=== PATIENT | male | born 1935 | race Caucasian/White ===

== ENCOUNTER → 2017-03-25 | Outpatient (CLI) | payer OTHER, MEDICARE ==
--- NOTE | 2017-03-25 15:12 | Diagnostic Imaging Report ---
EXAMINATION: Two views of the skull. INDICATION: Screening orbits for MRI with history of left eye injury. FINDINGS: There is no metallic foreign body seen within the left orbit or intracranially. The right orbit also demonstrates no metallic foreign body. IMPRESSION: No metallic foreign body in the orbits or intracranially. Dictated by: Dictated on workstation # [id number]
--- NOTE | 2017-03-25 17:53 | Diagnostic Imaging Report ---
PROCEDURE: MRI left upper extremity without contrast. TECHNIQUE: Multiplanar, multisequence non contrast-enhanced MRI of the left upper extremity was accomplished. INDICATION: Injury. Left shoulder pain. FINDINGS: There is no os acromiale or Hill-Sachs deformity. 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 There is thickening and increased signal in the supraspinatus and the infraspinatus tendons compatible with tendinosis with superimposed low-grade partial tears seen in the distal tendon. There is suggestion of mild cortical hypertrophy as well along the undersurface of the acromion. The subscapularis tendon appears to be intact. The long head of biceps tendon is within its groove. The labrum demonstrates thinning in its posterior superior aspect which could be related to degeneration or possible tear. This would be better evaluated with MR arthrogram if needed. There is mild muscle atrophy in the subscapularis and no significant atrophy in the rest of the muscles in the shoulder girdle. There is mild increased signal in the deep fibers of the subscapularis and the infraspinatus muscles, however, which may relate to mild sprain. No significant marrow signal abnormality seen. IMPRESSION: 1. Rotator cuff tendinosis with superimposed partial tears in the supraspinatus and infraspinatus tendons. 2. Edema in the deep fibers of the subscapularis and infraspinatus muscles, may relate to mild traumatic sprain. 3. Thinning of the posterior superior aspect of the labrum could relate to degeneration or possible tear. Dictated by: Dictated on workstation # [id number]
== END ==
LOC: RAD 14:11
PROVIDERS: ATTEND Internal Medicine
DX: M75.112 Incomplete rotator cuff tear or rupture of left shoulder, not specified as traumatic (principal); M75.92 Shoulder lesion, unspecified, left shoulder
CPT/HCPCS: 70250; 73221

== ENCOUNTER 2019-02-10 16:28 | Inpatient (IN) | payer MEDICARE, OTHER ==
[~2019-02-10] VITALS: Ht 177.8 cm; Wt 83.1 kg
[2019-02-10] MEDS ORDERED: RT-ALBUTEROL/IPRATROPIUM 3 ML (DUONEB) VIAL INH ONE ×2 (16:45→21:00)
--- NOTE | 2019-02-10 16:50 | ED Dyspnea ---
General Stated Complaint: COUGH, SOB Source of Information: Patient Exam Limitations: No Limitations History of Present Illness Date Seen by Provider: Feb 10, 2019 Time Seen by Provider: 16:35 Initial Comments Patient comes in from urgent care of her chief complaint is shortness of breath. States last night having trouble sleeping in a lying position and having to sleep in the recliner. Reports progressive shortness of breath at rest. Denies chest pain, nausea, vomiting, chills, or fever. Reports recent history of a "sinus issue". Patient has no known cardiac history. Timing/Duration: 24 Hours Severity: Moderate Associated Symptoms: Denies Symptoms Allergies and Home Medications Allergies Coded Allergies: No Known Drug Allergies (Unverified , 02/10/19) Home Medications Insulin Determir 1,000 Units/10 Ml Soln, 8 UNITS SQ HS, (Reported) Losartan/Hydrochlorothiazide 1 Each Tablet, 1 EACH PO DAILY, (Reported) Patient Home Medication List Home Medication List Reviewed: Yes Review of Systems Review of Systems Constitutional: No chills, No fever, No malaise EENTM: no symptoms reported Respiratory: dyspnea on exertion, orthopnea, short of breath Cardiovascular: no symptoms reported Gastrointestinal: no symptoms reported Musculoskeletal: no symptoms reported Skin: no symptoms reported Psychiatric/Neurological: No Symptoms Reported Endocrine: No Symptoms Reported Hematologic/Lymphatic: No Symptoms Reported Physical Exam Vital Signs Vital Signs - First Documented 02/10/19 02/10/19 16:28 16:50 Temp 37.3 Pulse 123 Resp 18 B/P (MAP) 146/83 (104) Pulse Ox 94 O2 Delivery Room Air O2 Flow Rate 3.50 Capillary Refill : Height, Weight, BMI Height: '" Weight: lbs. oz. kg; BMI Method: General Appearance: No Apparent Distress, WD/WN HEENT: PERRL/EOMI Neck: Full Range of Motion, Non Tender Respiratory: Accessory Muscle Use, Crackles, Decreased Breath Sounds Cardiovascular: No JVD, No Murmur, Tachycardia Peripheral Pulses: 2+ Radial Pulses (R), 2+ Radial Pulses (L) Gastrointestinal: Normal Bowel Sounds Extremity: Normal Capillary Refill Neurologic/Psychiatric: Alert, Oriented x3, Normal Mood/Affect Skin: Normal Color, Warm/Dry (is now unless we diagnosed) Focused Exam Lactate Level 02/10/19 16:35: Lactic Acid Level 1.50 Lactic Acid Level Laboratory Tests Test 02/10/19 16:35 Lactic Acid Level 1.50 MMOL/L (0.50-2.00) Progress/Results/Core Measures Results/Orders Lab Results Laboratory Tests Test 02/10/19 16:35 Range/Units White Blood Count 13.8 H 4.3-11.0 10^3/uL Red Blood Count 4.68 4.35-5.85 10^6/uL Hemoglobin 13.4 13.3-17.7 G/DL Hematocrit 40 40-54 % Mean Corpuscular Volume 86 80-99 FL Mean Corpuscular Hemoglobin 29 25-34 PG Mean Corpuscular Hemoglobin Concent 34 32-36 G/DL Red Cell Distribution Width 14.9 H 10.0-14.5 % Platelet Count 149 130-400 10^3/uL Mean Platelet Volume 10.2 7.4-10.4 FL Neutrophils (%) (Auto) 88 H 42-75 % Lymphocytes (%) (Auto) 4 L 12-44 % Monocytes (%) (Auto) 7 0-12 % Eosinophils (%) (Auto) 1 0-10 % Basophils (%) (Auto) 0 0-10 % Neutrophils # (Auto) 12.1 H 1.8-7.8 X 10^3 Lymphocytes # (Auto) 0.5 L 1.0-4.0 X 10^3 Monocytes # (Auto) 1.0 0.0-1.0 X 10^3 Eosinophils # (Auto) 0.2 0.0-0.3 10^3/uL Basophils # (Auto) 0.0 0.0-0.1 10^3/uL Neutrophils % (Manual) 82 % Lymphocytes % (Manual) 2 % Monocytes % (Manual) 6 % Eosinophils % (Manual) 1 % Basophils % (Manual) 0 % Band Neutrophils 9 % Anisocytosis SLIGHT Sodium Level 139 135-145 MMOL/L Potassium Level 4.9 3.6-5.0 MMOL/L Chloride Level 105 98-107 MMOL/L Carbon Dioxide Level 28 21-32 MMOL/L Anion Gap 6 5-14 MMOL/L Blood Urea Nitrogen 30 H 7-18 MG/DL Creatinine 1.61 H 0.60-1.30 MG/DL Estimat Glomerular Filtration Rate 41 BUN/Creatinine Ratio 19 Glucose Level 274 H 70-105 MG/DL Lactic Acid Level 1.50 0.50-2.00 MMOL/L Calcium Level 9.4 8.5-10.1 MG/DL Corrected Calcium 9.2 8.5-10.1 MG/DL Total Bilirubin 0.7 0.1-1.0 MG/DL Aspartate Amino Transf (AST/SGOT) 26 5-34 U/L Alanine Aminotransferase (ALT/SGPT) 27 0-55 U/L Alkaline Phosphatase 77 40-136 U/L Troponin I < 0.028 <0.028 NG/ML B-Type Natriuretic Peptide 74.0 <100.0 PG/ML Total Protein 7.3 6.4-8.2 GM/DL Albumin 4.2 3.2-4.5 GM/DL My Orders Orders - KAITLYNN DANIELSON APRN Blood Culture (02/10/19 16:37) Lactic Acid Analyzer (02/10/19 16:37) Cbc With Automated Diff (02/10/19 16:37) Comprehensive Metabolic Panel (02/10/19 16:37) Chest 1 View, Ap/Pa Only (02/10/19 16:37) Ekg Tracing (02/10/19 16:37) Troponin I (02/10/19 16:37) BNP (02/10/19 16:37) Albuterol/Ipra Inhalation Soln (Duoneb I (02/10/19 16:45) Svn Small Volume Nebulizer (02/10/19 16:37) Manual Differential (02/10/19 16:35) Ct Chest Wo (02/10/19 17:45) Medications Given in ED Current Medications Medications Dose Ordered Sig/Oneil Route Start Time Stop Time Status Last Admin Dose Admin Albuterol/ Ipratropium 3 ml ONCE ONCE INH 02/10/19 16:45 02/10/19 16:46 DC 02/10/19 16:50 3 ML Vital Signs/I&O 02/10/19 02/10/19 16:28 16:50 Temp 37.3 Pulse 123 Resp 18 B/P (MAP) 146/83 (104) Pulse Ox 94 94 O2 Delivery Room Air Nasal Cannula O2 Flow Rate 3.50 Departure Impression Primary Impression: Bibasilar pneumonia Disposition: ADMITTED INPATIENT Condition: Stable Departure-Patient Inst. Referrals: JENNIFER NIX DO (PCP/Family) Primary Care Physician KAITLYNN DANIELSON APRN Feb 10, 2019 16:50
[2019-02-10 16:52] LABS: BASOPHILS % (AUTO) 0 % (0-10); EOSINOPHILS # (AUTO) 0.2 10^3/uL (0.0-0.3); EOSINOPHILS % (AUTO) 1 % (0-10); HEMATOCRIT 40 % (40-54); HEMOGLOBIN 13.4 G/DL (13.3-17.7); LYMPHOCYTES # (AUTO) 0.5 X 10^3 (1.0-4.0); LYMPHOCYTES % (AUTO) 4 % (12-44); MEAN CORPUSCULAR HEMOGLOBIN 29 PG (25-34); MEAN CORPUSCULAR HGB CONC 34 G/DL (32-36); MEAN CORPUSCULAR VOLUME 86 FL (80-99); MEAN PLATELET VOLUME 10.2 FL (7.4-10.4); MONOCYTES % (AUTO) 7 % (0-12); NEUTROPHILS # (AUTO) 12.1 X 10^3 (1.8-7.8); NEUTROPHILS % (AUTO) 88 % (42-75); PLATELET COUNT 149 10^3/uL (130-400); RED CELL DISTRIBUTION WIDTH 14.9 % (10.0-14.5); WHITE BLOOD COUNT 13.8 10^3/uL (4.3-11.0)
[2019-02-10 17:11] LABS: ALANINE AMINOTRANSFERASE 27 U/L (0-55); ALBUMIN 4.2 GM/DL (3.2-4.5); ALKALINE PHOSPHATASE 77 U/L (40-136); BILIRUBIN,TOTAL 0.7 MG/DL (0.1-1.0); BUN/CREATININE RATIO 19; CALCIUM 9.4 MG/DL (8.5-10.1); CARBON DIOXIDE 28 MMOL/L (21-32); CHLORIDE 105 MMOL/L (98-107); CREATININE SERUM 1.61 MG/DL (0.60-1.30); GFR ESTIMATED 41; GLUCOSE 274 MG/DL (70-105); POTASSIUM 4.9 MMOL/L (3.6-5.0); SODIUM 139 MMOL/L (135-145); TOTAL PROTEIN 7.3 GM/DL (6.4-8.2)
[2019-02-10 17:28] LABS: BAND NEUTROPHILS 9 %; BASOPHILS % (MANUAL) 0 %; EOSINOPHILS % (MANUAL) 1 %; LYMPHOCYTES % (MANUAL) 2 %; MONOCYTES % (MANUAL) 6 %; NEUTROPHILS % (MANUAL) 82 %
[2019-02-10 17:29] LABS: ANISOCYTOSIS SLIGHT
--- NOTE | 2019-02-10 17:38 | Diagnostic Imaging Report ---
INDICATION: Shortness of breath. COMPARISON: None. FINDINGS: Single view of the chest demonstrates clear lungs bilaterally. The heart is normal. There is no pneumothorax. The osseous structures normal. IMPRESSION: Negative chest. Dictated by: Dictated on workstation # [id number]
[2019-02-10] MEDS ORDERED: PRED5DRO24 OP (17:40)
[2019-02-10] MEDS ORDERED: LOSA1TAB26 PO (17:40)
[2019-02-10] MEDS ORDERED: ASPI-586 PO (17:40)
[2019-02-10] MEDS ORDERED: CHOL20002 PO (17:40)
[2019-02-10] MEDS ORDERED: SITA100T12 PO (17:40)
[2019-02-10] MEDS ORDERED: VIT1CAPS8 PO (17:40)
[2019-02-10] MEDS ORDERED: GLIM4TAB PO (17:40)
[2019-02-10] MEDS ORDERED: METF-397 PO (17:40)
[2019-02-10] MEDS ORDERED: INSU100V5 SQ (17:40)
[2019-02-10] MEDS ORDERED: ISOS1POW MC (17:40)
[2019-02-10] MEDS ORDERED: FISH12002 PO (17:40)
[2019-02-10] MEDS ORDERED: PRAV10TA PO (17:40)
[2019-02-10] MEDS ORDERED: CYAN100088 PO (17:40)
--- NOTE | 2019-02-10 18:27 | Diagnostic Imaging Report ---
PROCEDURE: CT chest without contrast. TECHNIQUE: Multiple contiguous axial images were obtained through the chest without the use of intravenous contrast. Auto Exposure Controls were utilized during the CT exam to meet ALARA standards for radiation dose reduction. INDICATION: Shortness of breath and vomiting. Chest pain. COMPARISON: Comparison made to the chest radiograph from earlier in the same day. FINDINGS: Lungs demonstrate some linear opacities within both of the lung bases that are most likely reflective of dependent atelectasis. Small degree of right basilar infiltrate and developing pneumonia is however difficult to exclude as there is some slightly more consolidative opacification within the medial aspect of the right lung base. There is no evidence of an effusion. There is no pneumothorax. No pulmonary nodule or mass evident. There are mild atherosclerotic calcifications within the aorta. There are coronary calcifications. The heart size appears normal. There is no pericardial collection. There are no findings of pathologic mediastinal, hilar or axillary lymphadenopathy. The upper abdomen demonstrates no acute process. There is no acute or suspicious osseous abnormality. There are multilevel degenerative endplate changes. Remote left rib fractures are noted. IMPRESSION: 1. Predominantly linear opacities at the lung bases are most likely reflective of atelectasis though there is some slightly more focal consolidation within the medial aspect of the right lung base which could reflect a small region of developing pneumonia and infiltrate. 2. There is no effusion or adenopathy. 3. Atherosclerosis and coronary artery disease. 4. Upper abdomen unremarkable. 5. No acute or suspicious osseous abnormality. There are remote left rib fractures and there are background features of degenerative disc disease. Dictated by: Dictated on workstation # [id number]
[2019-02-10] MEDS ORDERED: cefTRIAXone FOR IV USE 1,000 MG in WATER (STERILE) FOR INJECTION 10 ML IV ONE (18:30)
--- NOTE | 2019-02-10 19:28 | NUR ---
MAYKEL JOHNS admitted to room 412-1, with an admitting diagnosis of PNEUMONIA AND HYPOXIA, on 02/10/19 from ED via CART, accompanied by STAFF.MAYKEL JOHNS introduced to surroundings, call light, bed controls, phone, TV, temperature control, lights, meal times, smoking policy, visitor policy, side rail policy, bathrooms and showers.
[2019-02-10] MEDS ORDERED: CATHETER FLUSH 10 ML SYR IV PRN (19:45)
[2019-02-10] MEDS ORDERED: ONDANSETRON 4 MG/2 ML (SDV) Z0FRAN IV PRN (19:45)
[2019-02-10] MEDS ORDERED: ACETAMINOPHEN 325 MG TABLET PO PRN (19:45)
[2019-02-10] MEDS ORDERED: AZITHROMYCIN 500 MG/NS 250 ML IVPB IV NR ×2 (20:00)
[2019-02-10 20:25] VITALS: BP 120/71
[2019-02-10] MEDS ORDERED: RT-ALBUTEROL/IPRATROPIUM 3 ML (DUONEB) VIAL INH PRN (20:30)
[2019-02-10 20:59] VITALS: BP 147/77
[2019-02-10] MEDS: LACTATED RINGERS 1,000 ML IV SCH (20:59)
[2019-02-10] MEDS ORDERED: RT-ALBUTEROL/IPRATROPIUM 3 ML (DUONEB) VIAL ONE (21:19)
[2019-02-10 21:36] VITALS: BP 148/83
[2019-02-11] VITALS (8 sets, daily range): BP systolic 90–136; BP diastolic 54–76
[2019-02-11 05:43] LABS: BASOPHILS % (AUTO) 0 % (0-10); EOSINOPHILS # (AUTO) 0.3 10^3/uL (0.0-0.3); EOSINOPHILS % (AUTO) 2 % (0-10); HEMATOCRIT 37 % (40-54); HEMOGLOBIN 12.1 G/DL (13.3-17.7); LYMPHOCYTES # (AUTO) 1.1 X 10^3 (1.0-4.0); LYMPHOCYTES % (AUTO) 8 % (12-44); MEAN CORPUSCULAR HEMOGLOBIN 29 PG (25-34); MEAN CORPUSCULAR HGB CONC 33 G/DL (32-36); MEAN CORPUSCULAR VOLUME 86 FL (80-99); MEAN PLATELET VOLUME 10.5 FL (7.4-10.4); MONOCYTES # (AUTO) 1.9 X 10^3 (0.0-1.0); MONOCYTES % (AUTO) 12 % (0-12); NEUTROPHILS # (AUTO) 11.9 X 10^3 (1.8-7.8); NEUTROPHILS % (AUTO) 78 % (42-75); PLATELET COUNT 142 10^3/uL (130-400); WHITE BLOOD COUNT 15.3 10^3/uL (4.3-11.0)
[2019-02-11] MEDS: AZITHROMYCIN 250 MG TAB (ZITHROMAX) PO SCH (08:43)
[2019-02-11] MEDS ORDERED: PRED5DRO17 OP (09:12)
[2019-02-11] MEDS ORDERED: ISOS30TA3 PO (09:12)
[2019-02-11] MEDS ORDERED: LOSA100T57 PO (09:12)
[2019-02-11] MEDS ORDERED: CNC1KV IM (09:24)
[2019-02-11] MEDS ORDERED: ACET325T38 PO (09:25)
[2019-02-11] MEDS ORDERED: NAPR220T66 PO (09:25)
--- NOTE | 2019-02-11 09:26 | NUR ---
SPOKE WITH PT ( WELL HIS ) HE HAD A HOME LIST, ALSO WENT THRU THE EXT MED HISTORY TO COMPLETE THE MED REC. GLIMEPIRIDE 4MG: PT IS ONLY TAKING 1/2 A TAB TO EQUAL A 2MG DOSE. LEVEMIR: PT IS NOW USING 10 UNITS HS, INDICATES THAT THE DOSE HAS BEEN CHANGING RECENTLY. OTC MEDS: VITAMIN D3: 1 HS ASPIRIN 81M HS OCUVITE: 1 HS ACETAMINOPHEN 325M BID PRN NAPROXEN 220M BID PRN
--- NOTE | 2019-02-11 10:37 | History & Physical-Hospitalist ---
History of Present Illness HPI/Chief Complaint Patient's an 83-year-old male with a past medical history of hypertension and insulin-dependent diabetes type II who presented to the emergency room with a chief complaint of cough and shortness of breath. He refers to his to provide his history. She states that on 911 he woke up with a sore throat he continued to worsen that evening and had to sleep in his recliner due to orthopnea. Yesterday she noticed that his lungs sounded rattly so she brought him to an urgent care. She states that the urgent care his oxygen saturations were low and they brought him via ambulance to the emergency department. He remained hypoxic here and was found to have a pneumonia on chest x-ray. He was tachycardic with a leukocytosis and admitted for sepsis due to CAP. This morning he states he's feeling better and asked to go home. He remains on 4 L via nasal cannula and at baseline has no oxygen requirement. Source: patient, family Date Seen 02/11/19 Time Seen by a Provider: 10:36 Attending Physician Mindi Boyd MD PCP Jennifer So DO Referring Physician Date of Admission Feb 10, 2019 at 6:33 pm Home Medications & Allergies Home Medications Reviewed patient Home Medication Reconciliation performed by pharmacy medication reconciliations diploma pharmacy technician and/or nursing. Patients Allergies have been reviewed. Allergies Allergies Coded Allergies No Known Drug Allergies (Unverified02/10/19) Past Nrugkyr-Mehexh-Jhrtuo Hx Past Med/Social Hx: Reviewed Nursing Past Med/Soc Hx Patient Social History Marrital Status: Employed/Student: retired Alcohol Use: Denies Use Recreational Drug Use: No Smoking Status: Never a Smoker 2nd Hand Smoke Exposure: No Recent Foreign Travel: No Contact w/other who traveled: No Recent Hopitalizations: No Recent Infectious Disease Expo: No Seasonal Allergies Seasonal Allergies: No Past Medical History Surgeries: Eye Surgery Cardiac: Hypertension Endocrine: Diabetes, Insulin dep HEENT: Cataract History of Blood Disorders: No Family History Reviewed Nursing Family Hx "GIRL" CANCER G8 SISTER No Pertinent Family Hx Review of Systems Constitutional: No chills, No fever, No weakness Respiratory: see HPI, cough, dyspnea on exertion, orthopnea, short of breath Cardiovascular: No chest pain, No edema, No palpitations Gastrointestinal: No abdominal pain, No nausea; vomiting (post tussive) Genitourinary: no symptoms reported Musculoskeletal: no symptoms reported Skin: no symptoms reported Psychiatric/Neurological: Other (confusion) Physical Exam Physical Exam Vital Signs Vital Signs - First Documented 02/10/19 02/10/19 02/10/19 16:28 16:50 20:25 Temp 37.3 Pulse 123 Resp 18 B/P (MAP) 146/83 (104) Pulse Ox 94 O2 Delivery Room Air O2 Flow Rate 3.50 FiO2 32 Capillary Refill : Less Than 3 Seconds Height, Weight, BMI Height: '" Weight: 183lbs. 4.0oz. 83.205687op; 26.35 BMI Method: General Appearance: No Apparent Distress, WD/WN HEENT: Moist Mucous Membranes; No Scleral Icterus (L), No Scleral Icterus (R) Neck: Normal Inspection, Supple; No Thyromegaly Respiratory: No Accessory Muscle Use, No Respiratory Distress, Crackles (bibasilar) Cardiovascular: Regular Rate, Rhythm, No Murmur Gastrointestinal: Normal Bowel Sounds, Non Tender, Soft Extremity: Normal Capillary Refill, No Calf Tenderness, No Pedal Edema Neurologic/Psychiatric: Alert, Normal Mood/Affect, Other (oriented to person and place- seems slight confused to details of HPI) Results Results/Procedures Labs Laboratory Tests 02/10/19 16:35 02/11/19 05:05 Patient resulted labs reviewed. Imaging: Reviewed Imaging Report Assessment/Plan Admission Diagnosis Sepsis from CAP Admission Status: Inpatient Order (span 2 midnights) Reason for Inpatient Admission: hypoxia, sepsis from pneumonia Assessment and Plan Sepsis Acute hypoxic respiratory failure CAP Leukocytosis with tachycardia, no end organ involvement Continue Rocephin and Azithro Await blood cultures Titrate sats to keep greater than 90% IDDMII Continue Levemir Sliding Scale Insulin HTN Well controlled, trend Diagnosis/Problems Diagnosis/Problems (1) Sepsis Qualifiers: Sepsis type: sepsis due to unspecified organism Sepsis acute organ dysfunction status: without acute organ dysfunction Qualified Codes: A41.9 - Sepsis, unspecified organism (2) CAP (community acquired pneumonia) Qualifiers: Laterality: right Lung location: unspecified part of lung Qualified Codes: J18.9 - Pneumonia, unspecified organism (3) Insulin dependent diabetes mellitus Status: Chronic (4) Essential (primary) hypertension Status: Chronic Clinical Quality Measures DVT/VTE Risk/Contraindication: Risk Factor Score Per Nursin RFS Level Per Nursing on Admit: 2=Moderate Copy Copies To 1: JENNIFER SO KATELYN M MD Feb 11, 2019 10:36 am
[2019-02-11] MEDS ORDERED: ACETAMINOPHEN 325 MG TABLET PO PRN (11:15)
[2019-02-11] MEDS: LACTATED RINGERS 1,000 ML IV SCH (11:53)
--- NOTE | 2019-02-11 15:13 | Physical Therapy Evaluation ---
PT Evaluation-General Medical Diagnosis Admission Date Feb 10, 2019 at 18:33 Medical Diagnosis: pneumonia/hypoxia Onset Date: Feb 10, 2019 Therapy Diagnosis Therapy Diagnosis: debility/weakness Height/Weight Weight (Pounds): 183 Weight (Ounces): 4.0 Precautions Precautions/Isolations: Fall Prevention, Standard Precautions Weight Bear Status Right Lower Extremity: Right Weight Bearing/Tolerated Left Lower Extremity: Left Weight Bearing/Tolerated Referral Physician: Deb Reason for Referral: Evaluation/Treatment Medical History Pertinent Medical History: DM, HTN Current History EMS from urgent care secondary to hypoxic Reviewed History: Yes Social History Home: Single Level Current Living Status: Spouse Entry Into Home: Level Entry Prior/Core FIM Prior Level of Function Therapy Code Descriptions/Definitions Functional [place] Measure: 0=Not Assessed/NA 4=Minimal Assistance 1=Total Assistance 5=Supervision or Setup 2=Maximal Assistance 6=Modified [place] 3=Moderate Assistance 7=Complete [place] Therapy Quality Codes: 6 Independent with activity with or without an assistive device 5 Patient requires set up or clean up by helper. Patient completes activity by themselves 4 Supervision or touching assist (CGA). [place] provide cues , steadying assist 3 The helper provides less than half the effort to complete the activity 2 The helper provides more than half the effort to complete the activity 1 Dependent. The helper does all the effort to complete an activity 7 Patient refused to complete or attempt activity 9 The patient did not perform the activity before the current illness or injury 88 Not attempted due to Medical conditions or safety concerns Functional Abilities and Goals: Independent: Patient completed the activities by him/herself, with or without an assistive device, with no assistance from a helper. Needed Some Help: Patient needed partial assistance from another person to complete activities. Dependent: A helper completed the activities for the patient. Unknown: Not Applicable: Bed Mobility: 7 Transfers (B,C,W/C) (FIM): 7 Gait: 7 Indoor Mobility (Ambulation): Independent Stairs: Not [place] Prior Devices Use: None PT Evaluation-Current Subjective Patient agrees to PT. Pain Numeric Pain Scale: 0-No Pain Location: No Pain Reported Objective Patient Orientation: Normal For Age Problem Solving: Fair Attachments: Oxygen (4L NC ), IV ROM/Strength ROM Lower Extremities bilateral LE WFL Strength Lower Extremities 4/5 grossly bilateral LE Integumentary/Posture Integumentary refer to nursing notes Bowel Incontinence: No Bladder Incontinence: No Posture WFL Neuromuscular (Tone, Coordination, Reflexes) grossly intact Sensory Vision: Wears Glasses Hearing: Impaired Sensation Right Lower Extremit: Impaired Sensation Left Lower Extremity: Impaired Transfers Therapy Code Descriptions/Definitions Functional [place] Measure: 0=Not Assessed/NA 4=Minimal Assistance 1=Total Assistance 5=Supervision or Setup 2=Maximal Assistance 6=Modified [place] 3=Moderate Assistance 7=Complete [place] Transfers (B, C, W/C) (FIM): 7 Scootin Rollin Supine to/from Sit: 7 Sit to/from Stand: 7 Gait Mode of Locomotion: Walk Anticipated Mode of Locomotion: Walk Gait (FIM): 4 Distance (FIM): 3=150 ft Distance: 300' Gait Level of Assist: 4 Gait Persons Needed: 1 Gait Assistive Device: None Comments/Gait Description refused FWW use/reports he furniture walks at home/unsteady gait sequence to right with PT and self correct Balance Sitting Static: Normal Sitting Dynamic: Normal Standing Static: Fair Standing Dynamic: Fair Assessment/Needs 83 y.o. male, will benefit from skilled PT to address functional mobility to ensure safe return to home with spouse at maximum LOF. Rehab Potential: Fair PT Production Control Expediter Goals Prison Goals PT Prison Goals Time Frame: Feb 18, 2019 Transfers (B,C,W/C) (FIM): 7 Gait (FIM): 7 Gait distance (FIM): 3=150 ft Distance: 300' Gait Level of Assist: 7 Gait Assistive Device: None PT Plan Problem List Problem List: Activity Tolerance, Safety, Balance Treatment/Plan Treatment Plan: Continue Plan of Care Treatment Plan: Bed Mobility, Education, Functional Activity Mikhail, Functional Strength, Gait, Safety, Therapeutic Exercise Treatment Duration: Feb 18, 2019 Frequency: 6 times per week Estimated Hrs Per Day: .25 hour per day Patient and/or Family Agrees t: Yes Time/GCodes Time In: 1430 Time Out: 1455 Total Billed Treatment Time: 25 Total Billed Treatment 1 visit EVMod 25 min KARIE HOLT PT Feb 11, 2019 15:13
--- NOTE | 2019-02-11 15:57 | Occupational Therapy Eval ---
OT Evaluation-General/PLF Medical Diagnosis Admission Date Feb 10, 2019 at 18:33 Medical Diagnosis: pneumonia/hypoxia Onset Date: Feb 10, 2019 Therapy Diagnosis Therapy Diagnosis: decreased ADL/ fx mob Height/Weight Weight (Pounds): 183 Weight (Ounces): 4.0 Precautions Precautions/Isolations: Fall Prevention, Standard Precautions Weight Bear Status Weight Bearing Restriction: Weight Bearing/Tolerated Referral Physician: Deb Referral Reason: Activity Tolerance, Self Care, Evaluation/Treatment, Strengthening/ROM Medical History Pertinent Medical History: DM, HTN Additional Medical History PMhx: HTN, DMII Current History Pt admitted due to SOB, cough, hypoxia Reviewed History: Yes Social History Home: Single Level Current Living Status: Spouse Entry Into Home: Level Entry Steps Into Home: 0 Steps Inside Home: 0 Pt states living at home with spouse. Pt IND within ADL/ IADL tasks. ADL-Prior Level of Function Therapy Code Descriptions/Definitions Functional [place] Measure: 0=Not Assessed/NA 4=Minimal Assistance 1=Total Assistance 5=Supervision or Setup 2=Maximal Assistance 6=Modified [place] 3=Moderate Assistance 7=Complete [place] Therapy Quality Codes: 6 Independent with activity with or without an assistive device 5 Patient requires set up or clean up by helper. Patient completes activity by themselves 4 Supervision or touching assist (CGA). [place] provide cues , steadying assist 3 The helper provides less than half the effort to complete the activity 2 The helper provides more than half the effort to complete the activity 1 Dependent. The helper does all the effort to complete an activity 7 Patient refused to complete or attempt activity 9 The patient did not perform the activity before the current illness or injury 88 Not attempted due to Medical conditions or safety concerns Functional Abilities and Goals: Independent: Patient completed the activities by him/herself, with or without an assistive device, with no assistance from a helper. Needed Some Help: Patient needed partial assistance from another person to complete activities. Dependent: A helper completed the activities for the patient. Unknown: Not Applicable: Self Care: Independent Functional Cognition: Independent DME/Equipment: Bath Chair, Grab Bars DME/Equipment Comments Pt was IND with ADL/IADLs without AD Occupation: retired Drive Self: Yes OT Current Status Subjective Pt talking on phone in recliner chair. Pt no c/o pain or any SOB. Pt's 02 at 4L, cannula in place. Pt agreeable to OT evaluation. Pt's daughter and son in law present. Appearance alert, awake Mental Status/Objective Patient Orientation: Person, Place, Time, Situation, Normal For Age Attachments: IV, Oxygen (4L), Telemetry Current Glasses/Contacts: Yes Hearing Aids: No Dentures/Partials: Yes Hand Dominance: Right Upper Extremity ROM WFL Upper Extremity Coordination WFL Upper Extremity Sensation WFL, no c/o paresthesia Upper Extremity Strength WFL: BUE shoulder flexion 4+/5, elbow flexion 4-/5 ADL-Treatment Therapy Code Descriptions/Definitions Functional [place] Measure: 0=Not Assessed/NA 4=Minimal Assistance 1=Total Assistance 5=Supervision or Setup 2=Maximal Assistance 6=Modified [place] 3=Moderate Assistance 7=Complete [place] Therapy Quality Codes: 6 Independent with activity with or without an assistive device 5 Patient requires set up or clean up by helper. Patient completes activity by themselves 4 Supervision or touching assist (CGA). [place] provide cues , steadying assist 3 The helper provides less than half the effort to complete the activity 2 The helper provides more than half the effort to complete the activity 1 Dependent. The helper does all the effort to complete an activity 7 Patient refused to complete or attempt activity 9 The patient did not perform the activity before the current illness or injury 88 Not attempted due to Medical conditions or safety concerns Eating (FIM): 6 Grooming (FIM): 6 Lower Body Dressing (FIM): 6 (increased time with shoe donning) Toileting (FIM): 6 (use of grab bars during transfer, pt completes with good safety) Transfers (B, C, W/C) (FIM): 5 (SBA for safety and management of IV/ 02 tubing) Toilet/Commode Transfer (FIM): 5 (pt completes with good safety with SUP for safety) Tub Transfer (FIM): 5 (SUP for safety and managment of tubing) Other Treatments Pt states he was SOB and coughing a bit upon admit, no use of 02 at home. Pt completes transfers with no AE, good dynamic standing balance. Pt completes transfers and walking with good safety awareness, acknowledging tubing and pausing when managing tubing of IV/ long 02 tubing. Pt educated of OT process, pt states he is able to complete activities with IND. Pt demonstrates WFL ROM and UE strength, demonstrating abilities to complete UE dressing and grooming tasks. Pt places shoes on feet with increased time. Pt agrees no OT needed at this time, pt educated of breathing techniques and returns to chair, call light in reach and all needs met. Education OT Patient Education: Correct positioning, Modified ADL techniques, Purpose of tx/functional activities, Rehab process, Safety issues, Transfer techniques Teaching Recipient: Patient Teaching Methods: Demonstration, Discussion Response to Teaching: Verbalize Understanding, Return Demonstration Pt educated about safety with tubing, energy conservation and breathing within daily tasks. Pt states no wear of 02 at home. OT Short Term Goals Short Term Goals 1=Demonstrate adherence to instructed precautions during ADL tasks. 2=Patient will verbalize/demonstrate understanding of assistive devices/modifications for ADL. 3=Patient will improve strength/tolerance for activity to enable patient to perform ADL's. OT Reclamation Furnace Operator Goals Reclamation Furnace Operator Goals 1=Demonstrate adherence to instructed precautions during ADL tasks. 2=Patient will verbalize/demonstrate understanding of assistive devices/tim fications for ADL. 3=Patient will improve strength/tolerance for activity to enable patient to perform ADL's. OT Education/Plan Problem List/Assessment Assessment: No Skilled OT Needs ID'd Discharge Recommendations Plan/Recommendations: Discontinue OT Therapy Discharge Recommendati: Other, See Comments Comment Pt is IND within ADL tasks with increased time noted, no OT services rendered at this time. Treatment Plan/Plan of Care Treatment,Training & Education: Yes Patient would benefit from OT for education, treatment and training to promote independence in ADL's, mobility, safety and/or upper extremity function for ADL's. Frequency: 1 time per week (eval only) Estimated Hrs Per Day: Other (eval only) Agreement: Yes Rehab Potential: Fair Time/GCodes Start Time: 15:30 Stop Time: 15:48 Total Time Billed (hr/min): 18 Billed Treatment Time 1 EVL (18) ROXI BAINS OTR Feb 11, 2019 15:57
[2019-02-11] MEDS: inSUlin ASPART (NovoLOG) 1 UNIT/0.01 ML (CHARGE PER UNIT) SC SCH ×3 (17:07→22:18)
[2019-02-11] MEDS: cefTRIAXone 1,000 MG/SWFI 10 ML IV PUSH IV SCH ×2 (18:25)
[2019-02-11] MEDS ORDERED: risperiDONE 0.25 MG (RisperDAL) TAB PO NR (19:15)
[2019-02-11] MEDS: LACTOBACILLUS ACIDOPHILUS (PROBIOTIC) CAPSULE PO SCH (19:55)
[2019-02-11] MEDS: prednisoLONE 1% OPTH (PRED FORTE) 5 ML BTL OU SCH (19:55)
[2019-02-11] MEDS: SIMvastatin 10 MG (ZOCOR) TAB PO SCH (21:09)
[2019-02-12 04:10] VITALS: BP 100/61
[2019-02-12] MEDS: inSUlin ASPART (NovoLOG) 1 UNIT/0.01 ML (CHARGE PER UNIT) SC SCH ×4 (06:54→22:16)
[2019-02-12] MEDS: LACTOBACILLUS ACIDOPHILUS (PROBIOTIC) CAPSULE PO SCH ×3 (06:55→18:05)
[2019-02-12 07:42] LABS: BASOPHILS % (AUTO) 0 % (0-10); EOSINOPHILS % (AUTO) 4 % (0-10); HEMATOCRIT 39 % (40-54); HEMOGLOBIN 12.7 G/DL (13.3-17.7); LYMPHOCYTES % (AUTO) 12 % (12-44); MEAN CORPUSCULAR HEMOGLOBIN 28 PG (25-34); MEAN CORPUSCULAR HGB CONC 32 G/DL (32-36); MEAN CORPUSCULAR VOLUME 86 FL (80-99); MEAN PLATELET VOLUME 10.9 FL (7.4-10.4); MONOCYTES % (AUTO) 12 % (0-12); NEUTROPHILS # (AUTO) 6.3 X 10^3 (1.8-7.8); NEUTROPHILS % (AUTO) 72 % (42-75); PLATELET COUNT 167 10^3/uL (130-400); RED CELL DISTRIBUTION WIDTH 15.5 % (10.0-14.5); WHITE BLOOD COUNT 8.7 10^3/uL (4.3-11.0)
[2019-02-12 07:43] LABS: EOSINOPHILS # (AUTO) 0.3 10^3/uL (0.0-0.3); LYMPHOCYTES # (AUTO) 1.1 X 10^3 (1.0-4.0); MONOCYTES # (AUTO) 1.1 X 10^3 (0.0-1.0)
[2019-02-12 07:58] VITALS: BP 125/65
[2019-02-12 08:11] LABS: CALCIUM 9.7 MG/DL (8.5-10.1); CREATININE SERUM 1.31 MG/DL (0.60-1.30); POTASSIUM 4.6 MMOL/L (3.6-5.0)
--- NOTE | 2019-02-12 08:55 | Progress Note - Hospitalist ---
Subjective HPI/CC On Admission Date Seen by Provider: Feb 12, 2019 Time Seen by Provider: 08:53 Patient's an 83-year-old male with a past medical history of hypertension and insulin-dependent diabetes type II who presented to the emergency room with a chief complaint of cough and shortness of breath. He refers to his to provide his history. She states that on 911 he woke up with a sore throat he continued to worsen that evening and had to sleep in his recliner due to orthopnea. Yesterday she noticed that his lungs sounded rattly so she brought him to an urgent care. She states that the urgent care his oxyg en saturations were low and they brought him via ambulance to the emergency department. He remained hypoxic here and was found to have a pneumonia on chest x-ray. He was tachycardic with a leukocytosis and admitted for sepsis due to CAP. This morning he states he's feeling better and asked to go home. He remains on 4 L via nasal cannula and at baseline has no oxygen requirement. Subjective/Events-last exam Pt sleeping soundly at this time. Discussed with aide and has been very confused still. Returned to bed when available and patietn awake. He believes he was brought to the basement last night and is unsure where he is now. states this is not common for him. Focused Exam Lactate Level 02/10/19 16:35: Lactic Acid Level 1.50 Objective Exam Vital Signs Vital Signs Date Time Temp Pulse Resp B/P (MAP) Pulse Ox O2 Delivery O2 Flow Rate FiO2 02/12/19 13:00 112 02/12/19 11:46 36.7 16 106/66 96 Nasal Cannula 4.00 02/10/19 20:25 32 Capillary Refill : Less Than 3 Seconds General Appearance: No Apparent Distress, WD/WN, Chronically ill Results/Procedures Lab Laboratory Tests 02/12/19 05:48 Patient resulted labs reviewed. Imaging: Reviewed Imaging Report Assessment/Plan Assessment and Plan Assess & Plan/Chief Complaint Sepsis Acute hypoxic respiratory failure CAP Leukocytosis resolved Continue Rocephin and Azithro Await blood cultures (1/ appears to have GPC that is likely a contaminant) Titrate sats to keep greater than 90%- currently 4lpm IDDMII Continue Levemir Sliding Scale Insulin HTN Well controlled, trend Delirium Risperdal added DC telemetry and IV at night to help with confusion Sitter outside of room Diagnosis/Problems Diagnosis/Problems (1) Sepsis Qualifiers: Sepsis type: sepsis due to unspecified organism Sepsis acute organ dysfunction status: without acute organ dysfunction Qualified Codes: A41.9 - Sepsis, unspecified organism (2) CAP (community acquired pneumonia) Qualifiers: Laterality: right Lung location: unspecified part of lung Qualified Codes: J18.9 - Pneumonia, unspecified organism (3) Insulin dependent diabetes mellitus Status: Chronic (4) Essential (primary) hypertension Status: Chronic Clinical Quality Measures DVT/VTE Risk/Contraindication: Risk Factor Score Per Nursin RFS Level Per Nursing on Admit: 2=Moderate FARSHAD STEWART MD Feb 12, 2019 8:55 am
[2019-02-12] MEDS: prednisoLONE 1% OPTH (PRED FORTE) 5 ML BTL OU SCH (08:59)
[2019-02-12] MEDS: LOSARTAN 100 MG (COZAAR) TABLET PO SCH (09:00)
[2019-02-12] MEDS: ISOSORBIDE MONONITRATE 30 MG (IMDUR) TAB PO SCH (09:00)
[2019-02-12] MEDS: AZITHROMYCIN 250 MG TAB (ZITHROMAX) PO SCH (09:00)
[2019-02-12] MEDS: RT-ALBUTEROL/IPRATROPIUM 3 ML (DUONEB) VIAL INH SCH ×2 (10:20→19:32)
--- NOTE | 2019-02-12 10:58 | Physical Therapy Daily Note ---
PT Daily Note-Current Subjective States that he is out of his mind but he will walk. Transfers Therapy Code Descriptions/Definitions Functional [place] Measure: 0=Not Assessed/NA 4=Minimal Assistance 1=Total Assistance 5=Supervision or Setup 2=Maximal Assistance 6=Modified [place] 3=Moderate Assistance 7=Complete [place] Therapy Quality Codes: 6 Independent with activity with or without an assistive device 5 Patient requires set up or clean up by helper. Patient completes activity by themselves 4 Supervision or touching assist (CGA). [place] provide cues , steadying as sist 3 The helper provides less than half the effort to complete the activity 2 The helper provides more than half the effort to complete the activity 1 Dependent. The helper does all the effort to complete an activity 7 Patient refused to complete or attempt activity 9 The patient did not perform the activity before the current illness or injury 88 Not attempted due to Medical conditions or safety concerns Weight Bearing Right Lower Extremity: Right Weight Bearing/Tolerated Left Lower Extremity: Left Weight Bearing/Tolerated Gait Training Gait (FIM): 5 Distance (FIM): 3=150 ft Distance: 300' Gait Level of Assist: 5 Gait Persons Needed: 1 Gait Assistive Device: FWW Assessment Current Status: Excellent Progress Patient had confusion but he did well with ambulation. PT Inter Fold Roll Cutter Goals Inter Fold Roll Cutter Goals PT Usp Goals Time Frame: Feb 18, 2019 Transfers (B,C,W/C) (FIM): 7 Gait (FIM): 7 Gait distance (FIM): 3=150 ft Distance: 300' Gait Level of Assist: 7 Gait Assistive Device: None PT Plan Treatment/Plan Treatment Plan: Continue Plan of Care Treatment Plan: Bed Mobility, Education, Functional Activity Mikhail, Functional Strength, Gait, Safety, Therapeutic Exercise Treatment Duration: Feb 18, 2019 Frequency: 6 times per week Estimated Hrs Per Day: .25 hour per day Patient and/or Family Agrees t: Yes Time/GCodes Time In: 1035 Time Out: 1050 Total Billed Treatment Time: 15 Total Billed Treatment 1, GT x 15' JOEL LIVINGSTON PT Feb 12, 2019 10:58
[2019-02-12 11:46] VITALS: BP 106/66
[2019-02-12] MEDS ORDERED: HALOPERIDOL 5 MG/ML (HALDOL) AMP IM PRN (14:15)
[2019-02-12 16:00] VITALS: BP 96/54
[2019-02-12] MEDS: cefTRIAXone 1,000 MG/SWFI 10 ML IV PUSH IV SCH ×2 (18:06)
[2019-02-12] MEDS: SIMvastatin 10 MG (ZOCOR) TAB PO SCH (20:25)
[2019-02-12] MEDS: ASPIRIN E.C. 81 MG (ECOTRIN) TAB PO SCH (20:25)
[2019-02-12] MEDS: MELATONIN 3 MG TABLET PO SCH (20:25)
[2019-02-12] MEDS: risperiDONE 0.25 MG (RisperDAL) TAB PO SCH (20:25)
[2019-02-12 23:42] VITALS: BP 118/69
[2019-02-13] MEDS: inSUlin ASPART (NovoLOG) 1 UNIT/0.01 ML (CHARGE PER UNIT) SC SCH ×4 (06:02→19:57)
[2019-02-13] MEDS: LACTOBACILLUS ACIDOPHILUS (PROBIOTIC) CAPSULE PO SCH ×3 (06:20→16:27)
[2019-02-13 08:00] VITALS: BP 148/68
[2019-02-13] MEDS: RT-ALBUTEROL/IPRATROPIUM 3 ML (DUONEB) VIAL INH SCH (08:14)
[2019-02-13] MEDS: AZITHROMYCIN 250 MG TAB (ZITHROMAX) PO SCH (08:18)
[2019-02-13] MEDS: LOSARTAN 100 MG (COZAAR) TABLET PO SCH (08:18)
[2019-02-13] MEDS: ISOSORBIDE MONONITRATE 30 MG (IMDUR) TAB PO SCH (08:18)
[2019-02-13] MEDS: prednisoLONE 1% OPTH (PRED FORTE) 5 ML BTL OU SCH (08:18)
--- NOTE | 2019-02-13 11:24 | Progress Note - Hospitalist ---
Subjective HPI/CC On Admission Date Seen by Provider: Feb 13, 2019 Time Seen by Provider: 11:21 Patient's an 83-year-old male with a past medical history of hypertension and insulin-dependent diabetes type II who presented to the emergency room with a chief complaint of cough and shortness of breath. He r efers to his to provide his history. She states that on 911 he woke up with a sore throat he continued to worsen that evening and had to sleep in his recliner due to orthopnea. Yesterday she noticed that his lungs sounded rattly so she brought him to an urgent care. She states that the urgent care his oxygen saturations were low and they brought him via ambulance to the emergency department. He remained hypoxic here and was found to have a pneumonia on chest x-ray. He was tachycardic with a leukocytosis and admitted for sepsis due to CAP. This morning he states he's feeling better and asked to go home. He remains on 4 L via nasal cannula and at baseline has no oxygen requirement. Subjective/Events-last exam Pt reports feeling well. Breathing improving. Still confused but improved from yesterday. Knows he is in a hospital but believes he is in [place]. Focused Exam Lactate Level 02/10/19 16:35: Lactic Acid Level 1.50 Objective Exam Vital Signs Vital Signs Date Time Temp Pulse Resp B/P (MAP) Pulse Ox O2 Delivery O2 Flow Rate FiO2 02/13/19 08:14 90 Room Air 02/13/19 08:00 36.7 84 18 148/68 2.00 02/10/19 20:25 32 Capillary Refill : Less Than 3 Seconds General Appearance: No Apparent Distress, Chronically ill Respiratory: Lungs Clear, No Accessory Muscle Use, No Respiratory Distress Cardiovascular: Regular Rate, Rhythm, No Murmur Neurologic/Psychiatric: Alert, Other (oriented to person and place) Results/Procedures Lab Patient resulted labs reviewed. Imaging: Reviewed Imaging Report Assessment/Plan Assessment and Plan Assess & Plan/Chief Complaint Sepsis Acute hypoxic respiratory failure CAP Improving slowly Continue Rocephin and Azithro Await blood cultures (1/4 appears to have GPC that is likely a contaminant) Titrate sats to keep greater than 90%- currently 4lpm Will need home oxygen study prior to DC IDDMII Continue Levemir Sliding Scale Insulin BS well controlled HTN Well controlled, trend Delirium Risperdal added- improving Sitter outside of room Diagnosis/Problems Diagnosis/Problems (1) Sepsis Status: Acute Qualifiers: Sepsis type: sepsis due to unspecified organism Sepsis acute organ dysfunction status: without acute organ dysfunction Qualified Codes: A41.9 - Sepsis, unspecified organism (2) CAP (community acquired pneumonia) Status: Acute Qualifiers: Laterality: right Lung location: unspecified part of lung Qualified Codes: J18.9 - Pneumonia, unspecified organism (3) Insulin dependent diabetes mellitus Status: Chronic (4) Essential (primary) hypertension Status: Chronic (5) Delirium Clinical Quality Measures DVT/VTE Risk/Contraindication: Risk Factor Score Per Nursin RFS Level Per Nursing on Admit: 2=Moderate FARSHAD STEWART MD Feb 13, 2019 11:24 am
[2019-02-13 11:57] VITALS: BP 148/68
[2019-02-13] MEDS ORDERED: RT-ALBUTEROL/IPRATROPIUM 3 ML (DUONEB) VIAL INH PRN (13:00)
[2019-02-13 15:20] VITALS: BP 118/67
[2019-02-13] MEDS: cefTRIAXone 1,000 MG/SWFI 10 ML IV PUSH IV SCH ×2 (16:27)
[2019-02-13] MEDS: ASPIRIN E.C. 81 MG (ECOTRIN) TAB PO SCH (20:12)
[2019-02-13] MEDS: SIMvastatin 10 MG (ZOCOR) TAB PO SCH (20:12)
[2019-02-13] MEDS: MELATONIN 3 MG TABLET PO SCH (20:13)
[2019-02-13] MEDS: risperiDONE 0.25 MG (RisperDAL) TAB PO SCH (20:13)
[2019-02-14] VITALS: BP 128/72
[2019-02-14 02:13] VITALS: BP 129/66
[2019-02-14] MEDS: LACTOBACILLUS ACIDOPHILUS (PROBIOTIC) CAPSULE PO SCH (07:03)
[2019-02-14] MEDS: inSUlin ASPART (NovoLOG) 1 UNIT/0.01 ML (CHARGE PER UNIT) SC SCH (07:03)
[2019-02-14 08:05] VITALS: BP 121/74
[2019-02-14] MEDS: prednisoLONE 1% OPTH (PRED FORTE) 5 ML BTL OU SCH (08:59)
[2019-02-14] MEDS: ISOSORBIDE MONONITRATE 30 MG (IMDUR) TAB PO SCH (08:59)
[2019-02-14] MEDS: AZITHROMYCIN 250 MG TAB (ZITHROMAX) PO SCH (08:59)
[2019-02-14] MEDS: LOSARTAN 100 MG (COZAAR) TABLET PO SCH (08:59)
--- NOTE | 2019-02-14 10:02 | Physical Therapy Daily Note ---
PT Daily Note-Current Subjective Patient is in chair with chair alarm activated. Agrees to PT. Pain Numeric Pain Scale: 0-No Pain Location: No Pain Reported Mental Status Patient Orientation: Confused Transfers Therapy Code Descriptions/Definitions Functional [place] Measure: 0=Not Assessed/NA 4=Minimal Assistance 1=Total Assistance 5=Supervision or Setup 2=Maximal Assistance 6=Modified [place] 3=Moderate Assistance 7=Complete [place] Therapy Quality Codes: 6 Independent with activity with or without an assistive device 5 Patient requires set up or clean up by helper. Patient completes activity by themselves 4 Supervision or touching assist (CGA). [place] provide cues , steadying assist 3 The helper provides less than half the effort to complete the activity 2 The helper provides more than half the effort to complete the activity 1 Dependent. The helper does all the effort to complete an activity 7 Patient refused to complete or attempt activity 9 The patient did not perform the activity before the current illness or injury 88 Not attempted due to Medical conditions or safety concerns Transfers (B, C, W/C) (FIM): 7 Scootin Sit to/from Stand: 7 Weight Bearing Right Lower Extremity: Right Weight Bearing/Tolerated Left Lower Extremity: Left Weight Bearing/Tolerated Gait Training Gait (FIM): 7 Distance (FIM): 3=150 ft Distance: 500' Gait Level of Assist: 7 Gait Assistive Device: None no deviation/functional gait sequence Assessment Patient remains up in recliner with chair alarm activated due to confusion and RN present. Patient also has a sitter for safety concerns. PT to dismiss patient from services due to patient is at independent PLOF and refuses to utilize FWW for safety measures. PT Senior Care Goals Senior Care Goals PT Senior Care Goals Time Frame: Feb 18, 2019 Transfers (B,C,W/C) (FIM): 7 Gait (FIM): 7 Gait distance (FIM): 3=150 ft Distance: 300' Gait Level of Assist: 7 Gait Assistive Device: None PT Plan Treatment/Plan Treatment Plan: Discontinue PT, goals met Treatment Plan: Bed Mobility, Education, Functional Activity Mikhail, Functional Strength, Gait, Safety, Therapeutic Exercise Treatment Duration: Feb 18, 2019 Frequency: 6 times per week Estimated Hrs Per Day: .25 hour per day Patient and/or Family Agrees t: Yes Time/GCodes Time In: 855 Time Out: 904 Total Billed Treatment Time: 9 Total Billed Treatment 1 visit FA 9 min YANET,KARIE PT Feb 14, 2019 10:02
[2019-02-14] MEDS ORDERED: CEFD300C3 PO (11:08)
--- NOTE | 2019-02-14 11:09 | NUR ---
O2 QUALIFICATION. PATIENT DOES NOT QUALIFY AT THIS TIME. Addendum: 02/14/19 at 1109 by BABAK HERNANDEZ RT Amended: Links added.
[2019-02-14] MEDS ORDERED: AZIT250T12 PO (11:10)
--- NOTE | 2019-02-14 11:11 | Discharge Instructions ---
Discharge Instructions Reconcile Patient Problems Problems Reviewed?: Yes Discharge Medications New, Converted or Re-Newed RX: Transmitted to Pharmacy Patient Instructions Patient Instructions: Take medications as prescribed. Follow up with Dr. So in about 1-2 weeks. Return to The Hospital For: fevers, shortness of breath, chest pain, or if you feel like you are getting worse. Activity & Diet Discharge Diet: No Restrictions Activity as Tolerated: Yes JAMES CARMONA MD Feb 14, 2019 11:11
--- NOTE | 2019-02-14 15:33 | Discharge Summary ---
Discharge Summary Hospital Course Problems/Dx: (1) Sepsis Status: Resolved Qualifiers: Qualified Codes: A41.9 - Sepsis, unspecified organism (2) CAP (community acquired pneumonia) Status: Acute Qualifiers: Qualified Codes: J18.9 - Pneumonia, unspecified organism (3) Insulin dependent diabetes mellitus Status: Chronic (4) Essential (primary) hypertension Status: Chronic (5) Delirium Status: Resolved Hospital Course Date of Admission: Feb 10, 2019 at 18:33 Admission Diagnosis : sepsis due to pneumonia Family Physician/Provider: Fareed So DO Date of Discharge: 02/14/19 Discharge Diagnosis: sepsis due to pneumonia Hospital Course: Ronak Sosa is an 83-year-old male who was admitted with sepsis due to pneumonia. He was started on ceftriaxone and azithromycin and responded well. He was transitioned to Omnicef and oral azithromycin on discharge. He will complete a 5 day course of azithromycin and a seven-day course the Omnicef. He was requiring supplemental oxygen at the beginning of his hospital stay, but his oxygen requirement resolved on discharge. His hospital stay was also complicated by delirium which appeared to be multifactorial. He will follow-up with his primary care physician in 1 to 2 weeks. Labs and Pending Lab Test: Laboratory Tests 02/13/19 19:55: Glucometer 80 02/13/19 21:59: Glucometer 99 02/14/19 03:55: Glucometer 92 Microbiology 02/10/19 Blood Culture - Preliminary, Resulted No growth Home Meds Active Azithromycin 250 Mg Tablet 250 Mg PO DAILY 1 Days Cefdinir 300 Mg Capsule 300 Mg PO BID 4 Days Reported Aleve (Naproxen Sodium) 220 Mg Tablet 220 Mg PO BID PRN Tylenol (Acetaminophen) 325 Mg Tablet 325 Mg PO BID PRN Cyanocobalamin Injection (Cyanocobalamin) 1,000 Mcg/Ml Inj 1,000 Mcg IM MONTHLY NEXT INJECTION DUE ON 02-22-2019 Prednisolone Acetate 5 Ml Drops.susp 1 Drop OP DAILY Isosorbide Mononitrate ER (Isosorbide Mononitrate) 30 Mg Tab.er.24h 30 Mg PO DAILY Losartan Potassium 100 Mg Tablet 100 Mg PO DAILY Clark 3-6-9 1,200 mg Softgel (Fish Oil/Borage/Flax/Om3,6,9#1) 1,200 Mg Capsule 1,200 Mg PO BID Ocuvite Lutein & Zeaxanthin Cp (Vit C/E/Zn/Coppr/Lutein/Zeaxan) 1 Each Capsule 1 Each PO HS Aspir 81 (Aspirin) 81 Mg Tablet.dr 81 Mg PO HS Vitamin D-3 (Cholecalciferol (Vitamin D3)) 2,000 Unit Capsule 2,000 Unit PO HS Pravastatin Sodium 10 Mg Tablet 10 Mg PO DAILY Metformin HCl 500 Mg Tablet 500 Mg PO HS Januvia (Sitagliptin Phosphate) 100 Mg Tablet 100 Mg PO DAILY Glimepiride 4 Mg Tablet 2 Mg PO DAILY Levemir (Insulin Determir) 1,000 Units/10 Ml Soln 10 Units SQ HS Assessment/Pt Instructions see separate note " discharge instructions" Discharge Planning: <30 minutes discharge planning Discharge Instructions Discharge Diet: No Restrictions Activity as Tolerated: Yes Discharge Physical Examination Vital Signs Vital Signs Date Time Temp Pulse Resp B/P (MAP) Pulse Ox O2 Delivery O2 Flow Rate FiO2 02/14/19 08:40 93 Room Air 02/14/19 08:05 36.2 85 18 121/74 02/14/19 02:13 2.00 02/13/19 11:57 28 General Appearance: No Apparent Distress, WD/WN Respiratory: Lungs Clear, Normal Breath Sounds, No Respiratory Distress Cardiovascular: Regular Rate, Rhythm, No Edema, No Murmur Gastrointestinal: Normal Bowel Sounds, Non Tender, Soft Extremity: Normal Inspection, Non Tender Skin: Normal Color, Warm/Dry Neurologic/Psychiatric: Alert; No Disoriented Allergies: Coded Allergies: No Known Drug Allergies (Unverified , 02/10/19) Discharge Summary Date of Admission Feb 10, 2019 at 18:33 Date of Discharge Feb 14, 2019 at 12:09 Discharge Date: Feb 14, 2019 Discharge Time: 12:00 Admission Diagnosis Sepsis from CAP Discharge Diagnosis sepsis due to pneumonia (1) Sepsis Status: Resolved Qualifiers: Qualified Codes: A41.9 - Sepsis, unspecified organism (2) CAP (community acquired pneumonia) Status: Acute Qualifiers: Qualified Codes: J18.9 - Pneumonia, unspecified organism (3) Insulin dependent diabetes mellitus Status: Chronic (4) Essential (primary) hypertension Status: Chronic (5) Delirium Status: Resolved Clinical Quality Measures DVT/VTE Risk/Contraindication: Risk Factor Score Per Nursin RFS Level Per Nursing on Admit: 2=Moderate JAMES CARMONA MD Feb 14, 2019 15:28
== END 2019-02-14 12:09 | disposition home or self-care (01) | DRG 871 ==
LOC: EDUNIT# 16:28 → ER 16:30 → 4TH 18:33
PROVIDERS: ADMIT Family Medicine; ATTEND Family Medicine
DX: A41.9 Sepsis, unspecified organism (principal); J18.9 Pneumonia, unspecified organism; F05 Delirium due to known physiological condition; J96.01 Acute respiratory failure with hypoxia; E11.9 Type 2 diabetes mellitus without complications; I10 Essential (primary) hypertension; Z79.4 Long term (current) use of insulin
CPT/HCPCS: 36415; 71045; 71250; 80048; 80053; 82962; 83605; 83880; 84484; 85007; 85025; 85027; 87040; 93005; 94640; 94664; 94760; 94761; 96374

== ENCOUNTER 2020-09-13 09:17 | Emergency (ER) | payer MEDICARE, OTHER ==
[~2020-09-13] VITALS: Ht 177.8 cm; Wt 81.8 kg
[~2020-09-13 09:17] MED LIST: ACET325T38 PO; ASPI-586 PO; AZIT250T12 PO; CEFD300C3 PO; CHOL20002 PO; CNC1KV IM; CYAN100088 PO; FISH12002 PO; GLIM4TAB5 PO; INSU100V5 SQ; ISOS1POW MC; ISOS30TA82 PO; LOSA100T57 PO; LOSA1TAB26 PO; METF-397 PO; NAPR220T66 PO; PRAV10TA PO; PRED5DRO17 OP; PRED5DRO24 OP; SITA100T12 PO; VIT1CAPS8 PO
[2020-09-13 09:39] LABS: BASOPHILS % (AUTO) 1 % (0-10); EOSINOPHILS # (AUTO) 0.1 10^3/uL (0.0-0.3); EOSINOPHILS % (AUTO) 2 % (0-10); HEMATOCRIT 42 % (40-54); LYMPHOCYTES # (AUTO) 1.8 10^3/uL (1.0-4.0); LYMPHOCYTES % (AUTO) 20 % (12-44); MEAN CORPUSCULAR HEMOGLOBIN 29 pg (25-34); MEAN CORPUSCULAR HGB CONC 33 g/dL (32-36); MEAN CORPUSCULAR VOLUME 86 fL (80-99); MONOCYTES # (AUTO) 0.8 10^3/uL (0.0-1.0); MONOCYTES % (AUTO) 9 % (0-12); NEUTROPHILS % (AUTO) 68 % (42-75); PLATELET COUNT 201 10^3/uL (130-400); WHITE BLOOD COUNT 8.8 10^3/uL (4.3-11.0)
[2020-09-13 09:45] LABS: BILIRUBIN,URINE NEGATIVE (NEGATIVE); CLARITY,URINE CLEAR; COLOR,URINE YELLOW; GLUCOSE, URINE (UA) TRACE (NEGATIVE); KETONES,URINE 1+ (NEGATIVE); LEUKOCYTE ESTERASE ,URINE NEGATIVE (NEGATIVE); NITRITE,URINE NEGATIVE (NEGATIVE); PH,URINE 5.5 (5-9); PROTEIN,URINE 1+ (NEGATIVE)
[2020-09-13] MEDS ORDERED: NS IV 1000 ML 1,000 ML IV SCH (09:45)
[2020-09-13 09:53] LABS: BACTERIA,URINE NEGATIVE /HPF; SQUAMOUS EPITHELIAL CELL,UR RARE /HPF
[2020-09-13 09:58] LABS: ALBUMIN 4.2 GM/DL (3.2-4.5); POTASSIUM 4.6 MMOL/L (3.6-5.0)
[2020-09-13 09:59] LABS: CALCIUM 9.3 MG/DL (8.5-10.1)
[2020-09-13 10:01] LABS: TOTAL PROTEIN 7.5 GM/DL (6.4-8.2)
[2020-09-13 10:02] LABS: BILIRUBIN,TOTAL 0.6 MG/DL (0.1-1.0)
[2020-09-13 10:04] LABS: CREATININE SERUM 1.56 MG/DL (0.60-1.30)
[2020-09-13 10:07] LABS: MAGNESIUM 1.8 MG/DL (1.6-2.4)
--- NOTE | 2020-09-13 11:17 | ED General ---
General Chief Complaint: General Problems/Pain Stated Complaint: NOT EATING Nursing Triage Note: TO ED PER [facility] PER HAS NOT BEEN EATING OR DRINKNG AND C/O BEING DIZZY AND FALLING PMH OF DEMENTIA Nursing Sepsis Screen: No Definite Risk Source of Information: Patient, Family Exam Limitations: Other (Dementia) History of Present Illness Date Seen by Provider: Sep 13, 2020 Time Seen by Provider: 09:31 Initial Comments This 84-year-old gentleman presents to the emergency room accompanied by his with concerns about progressive weakness, dizziness, multiple falls, and medical noncompliance with his medications. He does have dementia and lives at home with his . Patient denies any significant injuries or pain. He has an abrasion to his left knee but this does not seem to be painful. His reports that his dizziness seems to be at times vertiginous and other times lightheadedness upon standing. He also has been often urinating on the floor. She reports he has not had anything significant to eat in about 3 days and is only taking small drinks of liquids. He has stopped taking Levemir. He has received both of his Covid vaccinations more than a month ago. Allergies and Home Medications Allergies Coded Allergies: No Known Drug Allergies (Unverified , 02/10/19) Home Medications Acetaminophen 325 Mg Tablet, 325 MG PO BID PRN for PAIN-MILD, (Reported) Aspirin 81 Mg Tablet.dr, 81 MG PO HS, (Reported) Azithromycin 250 Mg Tablet, 250 MG PO DAILY Prescribed by: JAMES CARMONA on 02/14/19 1110 Cefdinir 300 Mg Capsule, 300 MG PO BID Prescribed by: JAMES CARMONA on 02/14/19 1108 Cholecalciferol (Vitamin D3) 2,000 Unit Capsule, 2,000 UNIT PO HS, (Reported) Cyanocobalamin 1,000 Mcg/Ml Inj, 1,000 MCG IM MONTHLY, (Reported) NEXT INJECTION DUE ON 02-22-2019 Fish Oil/Borage/Flax/Om3,6,9#1 1,200 Mg Capsule, 1,200 MG PO BID, (Reported) Glimepiride 4 Mg Tablet, 2 MG PO DAILY, (Reported) Insulin Determir 1,000 Units/10 Ml Soln, 10 UNITS SQ HS, (Reported) Isosorbide Mononitrate 30 Mg Tab.er.24h, 30 MG PO DAILY, (Reported) Losartan Potassium 100 Mg Tablet, 100 MG PO DAILY, (Reported) Metformin HCl 500 Mg Tablet, 500 MG PO HS, (Reported) Naproxen Sodium 220 Mg Tablet, 220 MG PO BID PRN for PAIN-MILD, (Reported) Pravastatin Sodium 10 Mg Tablet, 10 MG PO DAILY, (Reported) Prednisolone Acetate 5 Ml Drops.susp, 1 DROP OP DAILY, (Reported) Sitagliptin Phosphate 100 Mg Tablet, 100 MG PO DAILY, (Reported) Vit C/E/Zn/Coppr/Lutein/Zeaxan 1 Each Capsule, 1 EACH PO HS, (Reported) Patient Home Medication List Home Medication List Reviewed: Yes Review of Systems Review of Systems Constitutional: see HPI, weakness EENTM: no symptoms reported Respiratory: no symptoms reported Cardiovascular: see HPI Gastrointestinal: see HPI Genitourinary: no symptoms reported Musculoskeletal: see HPI Skin: see HPI Psychiatric/Neurological: See HPI Hematologic/Lymphatic: No Symptoms Reported Immunological/Allergic: no symptoms reported Past Ebaxbtu-Fpbsuz-Kcyxyb Hx Past Med/Social Hx: Reviewed Nursing Past Med/Soc Hx Patient Social History Alcohol Use: Denies Use Smoking Status: Never a Smoker 2nd Hand Smoke Exposure: No Recent Infectious Disease Expo: No Recent Hopitalizations: No Seasonal Allergies Seasonal Allergies: No Past Medical History Eye Surgery Respiratory: No Cardiac: Yes (CHF) Hypertension Neurological: Yes Dementia Genitourinary: No Gastrointestinal: No Musculoskeletal: No Endocrine: Yes Diabetes, Insulin dep HEENT: Yes (cornea transplant x2) Cataract Cancer: No Psychosocial: No Integumentary: No Blood Disorders: No Family Medical History "GIRL" CANCER G8 SISTER No Pertinent Family Hx Physical Exam Vital Signs Vital Signs - First Documented 09/13/20 09/13/20 09:19 10:34 Temp 36.3 Pulse 80 Resp 18 B/P (MAP) 177/110 (132) Pulse Ox 96 O2 Delivery Room Air Capillary Refill : Less Than 3 Seconds Height, Weight, BMI Height: '" Weight: 183lbs. 4.0oz. 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92 4.30-5.52 10^6/uL Hemoglobin 14.0 13.3-17.7 g/dL Hematocrit 42 40-54 % Mean Corpuscular Volume 86 80-99 fL Mean Corpuscular Hemoglobin 29 25-34 pg Mean Corpuscular Hemoglobin Concent 33 32-36 g/dL Red Cell Distribution Width 14.3 10.0-14.5 % Platelet Count 201 130-400 10^3/uL Mean Platelet Volume 11.0 9.0-12.2 fL Immature Granulocyte % (Auto) 0 % Neutrophils (%) (Auto) 68 42-75 % Lymphocytes (%) (Auto) 20 12-44 % Monocytes (%) (Auto) 9 0-12 % Eosinophils (%) (Auto) 2 0-10 % Basophils (%) (Auto) 1 0-10 % Neutrophils # (Auto) 6.0 1.8-7.8 10^3/uL Lymphocytes # (Auto) 1.8 1.0-4.0 10^3/uL Monocytes # (Auto) 0.8 0.0-1.0 10^3/uL Eosinophils # (Auto) 0.1 0.0-0.3 10^3/uL Basophils # (Auto) 0.0 0.0-0.1 10^3/uL Immature Granulocyte # (Auto) 0.0 0.0-0.1 10^3/uL Sodium Level 140 135-145 MMOL/L Potassium Level 4.6 3.6-5.0 MMOL/L Chloride Level 103 98-107 MMOL/L Carbon Dioxide Level 23 21-32 MMOL/L Anion Gap 14 5-14 MMOL/L Blood Urea Nitrogen 24 H 7-18 MG/DL Creatinine 1.56 H 0.60-1.30 MG/DL Estimat Glomerular Filtration Rate 43 BUN/Creatinine Ratio 15 Glucose Level 160 H 70-105 MG/DL Calcium Level 9.3 8.5-10.1 MG/DL Corrected Calcium 9.1 8.5-10.1 MG/DL Magnesium Level 1.8 1.6-2.4 MG/DL Total Bilirubin 0.6 0.1-1.0 MG/DL Aspartate Amino Transf (AST/SGOT) 19 5-34 U/L Alanine Aminotransferase (ALT/SGPT) 23 0-55 U/L Alkaline Phosphatase 79 40-136 U/L Troponin I 0.028 <0.028 NG/ML Total Protein 7.5 6.4-8.2 GM/DL Albumin 4.2 3.2-4.5 GM/DL Urine Color YELLOW Urine Clarity CLEAR Urine pH 5.5 5-9 Urine Specific [place] 1.025 H 1.016-1.022 Urine Protein 1+ H NEGATIVE Urine Glucose (UA) TRACE H NEGATIVE Urine Ketones 1+ H NEGATIVE Urine Nitrite NEGATIVE NEGATIVE Urine Bilirubin NEGATIVE NEGATIVE Urine Urobilinogen 0.2 < = 1.0 MG/DL Urine Leukocyte Esterase NEGATIVE NEGATIVE Urine RBC (Auto) TRACE-I NEGATIVE Urine RBC NONE /HPF Urine WBC NONE /HPF Urine Squamous Epithelial Cells RARE /HPF Urine Crystals NONE /LPF Urine Bacteria NEGATIVE /HPF Urine Casts NONE /LPF Urine Mucus NEGATIVE /LPF Urine Culture Indicated NO My Orders Orders - TAYA PÉREZ MD Cbc With Automated Diff (09/13/20 09:31) Comprehensive Metabolic Panel (09/13/20 09:31) Magnesium (09/13/20 09:31) Ua Culture If Indicated (09/13/20 09:31) Ed Iv/Invasive Line Start (09/13/20 09:31) Ns Iv 1000 Ml (Sodium Chloride 0.9%) (09/13/20 09:45) Ct Head/Cervical Spine Wo (09/13/20 10:20) Us Carotid Ronaldo Complete [id number] (09/13/20 10:20) Troponin I (09/13/20 12:17) Ekg Tracing (09/13/20 12:17) Vital Signs/I&O 09/13/20 09/13/20 09/13/20 09:19 10:34 13:41 Temp 36.3 Pulse 80 73 90 Resp 18 18 18 B/P (MAP) 177/110 (132) 165/89 (114) 145/97 Pulse Ox 96 98 O2 Delivery Room Air Room Air Room Air Capillary Refill : Less Than 3 Seconds Blood Pressure Mean: 114 Diagnostic Imaging Diagonstic Imaging: CT Plain Films/CT/US/NM/MRI: c-spine, head Comments CT head and C-spine viewed by me and report reviewed. See report below: NAME: MAYKEL JOHNS [facility] REC#: [id number] PT STATUS: REG ER : 1935 PHYSICIAN: TAYA PÉREZ MD ADMIT DATE: 09/13/20/ER Draft Date of Exam:09/13/20 CT HEAD/CERVICAL SPINE WO CLINICAL INDICATION: Patient is dizzy. EXAMS: 1: Axial Head CT without IV contrast. Coronal and sagittal reformations were created. 2: Axial cervical spine CT scan without IV contrast with sagittal and coronal reformations. Auto Exposure Controls were utilized during the CT exam to meet ALARA standards for radiation dose reduction. COMPARISON: X-ray of the cervical spine dated 02/22/2009. FINDINGS: Head CT: There is no evidence of acute cerebral infarct, intracranial hemorrhage, or gross mass effect. There is diffuse brain parenchymal volume loss. There is diffuse patchy confluent areas of low-attenuation white matter changes seen throughout both cerebral hemispheres. There is normal sharpe-white matter distinction. There is no significant midline shift or herniation. There is no evidence of hydrocephalus. The basal cisterns are unremarkable. The skull, extracranial soft tissue, and orbits are unremarkable. There is minimal mucosal thickening involving the right maxillary sinus and ethmoid sinus. Temporal bones show no significant abnormality. Cervical spine CT: There is no acute cervical spine fracture or dislocation. There is left curvature of the upper thoracic spine. There is hypertrophic spurs and facet arthropathy involving the cervical spine. There are bony erosive changes involving the odontoid process and mary-odontoid pannus with soft tissue calcification involving the mary-odontoid pannus. These findings may be seen with rheumatoid arthritis and/or CPPD. There is at least mild central canal narrowing at the C5-C6 level due to posterior disk spurs. There is [id number] left C3-C4 neural foramen narrowing due to uncinate spurs and facet arthropathy. There is no significant neck soft tissue abnormality. Visualized upper lung bhatia are clear. IMPRESSION: 1: There is no gross CT evidence of acute intracranial process or skull fracture. 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 3: There is diffuse brain parenchymal volume loss and diffuse chronic small vessel ischemic disease and leukoaraiosis. There is no definite CT evidence of interval acute cerebral infarction, intracranial hemorrhage, or mass seen. Given the diffuse low attenuation changes throughout the brain parenchyma which can obscure more subtle findings, if there is clinical concern for acute cerebral infarction, MRI of the brain would better evaluate. Dictated on workstation # [id number] Dict: 09/13/20 1157 Trans: 09/13/20 1209 [facility] [id number] Interpreted by: RACHELL QUILES MD Diagonstic Imaging: Ultrasound Comments Carotid ultrasound report reviewed. See report below: NAME: MAYKEL JOHNS [facility] REC#: [id number] PT STATUS: DEP ER : 1935 PHYSICIAN: TAYA PÉREZ MD ADMIT DATE: 09/13/20/ER Signed Date of Exam:09/13/20 US CAROTID RONALDO COMPLETE [id number] Clinical indication: Patient with dizziness with standing, falling. Comparison: None Exam: Real-time carotid Doppler duplex imaging is performed bilaterally. Peak systolic velocity, ICA/CCA peak systolic ratio, spectral analysis, and vascular morphology are studied. Findings: ARTERY VELOCITY Right Left CCA 0.68 m/s 0.62 m/s ICA 0.67 m/s 0.64 m/s ECA 0.75 m/s 0.58 m/s ICA/CCA 1.0 1.0 VERT.ART Antegrade Antegrade There is mild bilateral carotid artery atherosclerotic disease. Impression: There is no grayscale or Doppler evidence of significant vascular stenosis. Dictated by: Dictated on workstation # [id number] Dict: 09/13/20 1246 Trans: 09/13/20 1733 [id number] Interpreted by: RACHELL QUILES MD Electronically signed by: RACHELL QUILES MD 09/13/20 1733 Departure Impression Primary Impression: Dementia Qualified Codes: F03.91 - Unspecified dementia with behavioral disturbance Additional Impressions: Frequent falls Urinary frequency Dizziness Disposition: 01 HOME, SELF-CARE Condition: Stable Departure-Patient Inst. Decision time for Depature: 13:26 Referrals: JENNIFER SO DO (PCP/Family) Primary Care Physician Patient Instructions: Dementia ED Add. Discharge Instructions: Follow-up with Dr. Hernandez regarding urinary frequency. Encourage use of a cane or walker to aid with balance. Follow-up with Dr. So as soon as possible. Have Dr. So review medications and also discuss interventions that may help with gait and fall risk such as physical therapy for strength and balance training. Call with questions or concerns. Return to the ER if there are worsening symptoms. All discharge instructions reviewed with patient and/or family. Voiced understanding. Copy Copies To 1: JENNIFER SO DO Copies To 2: RONALD HAIDER MD, JOSHUA T MD Sep 13, 2020 11:17
--- NOTE | 2020-09-13 12:09 | Diagnostic Imaging Report ---
CLINICAL INDICATION: Patient is dizzy. EXAMS: 1: Axial Head CT without IV contrast. Coronal and sagittal reformations were created. 2: Axial cervical spine CT scan without IV contrast with sagittal and coronal reformations. Auto Exposure Controls were utilized during the CT exam to meet ALARA standards for radiation dose reduction. COMPARISON: X-ray of the cervical spine dated 02/22/2009. FINDINGS: Head CT: There is no evidence of acute cerebral infarct, intracranial hemorrhage, or gross mass effect. There is diffuse brain parenchymal volume loss. There is diffuse patchy confluent areas of low-attenuation white matter changes seen throughout both cerebral hemispheres. There is normal sharpe-white matter distinction. There is no significant midline shift or herniation. There is no evidence of hydrocephalus. The basal cisterns are unremarkable. The skull, extracranial soft tissue, and orbits are unremarkable. There is minimal mucosal thickening involving the right maxillary sinus and ethmoid sinus. Temporal bones show no significant abnormality. Cervical spine CT: There is no acute cervical spine fracture or dislocation. There is left curvature of the upper thoracic spine. There is hypertrophic spurs and facet arthropathy involving the cervical spine. There are bony erosive changes involving the odontoid process and mary-odontoid pannus with soft tissue calcification involving the mary-odontoid pannus. These findings may be seen with rheumatoid arthritis and/or CPPD. There is at least mild central canal narrowing at the C5-C6 level due to posterior disk spurs. There is [id number] left C3-C4 neural foramen narrowing due to uncinate spurs and facet arthropathy. There is no significant neck soft tissue abnormality. Visualized upper lung bhatia are clear. IMPRESSION: 1: There is no gross CT evidence of acute intracranial process or skull fracture. 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 3: There is diffuse brain parenchymal volume loss and diffuse chronic small vessel ischemic disease and leukoaraiosis. Dictated by: Dictated on workstation # [id number]
--- NOTE | 2020-09-13 12:52 | Diagnostic Imaging Report ---
Clinical indication: Patient with dizziness with standing, falling. Comparison: None Exam: Real-time carotid Doppler duplex imaging is performed bilaterally. Peak systolic velocity, ICA/CCA peak systolic ratio, spectral analysis, and vascular morphology are studied. Findings: ARTERY VELOCITY Right Left CCA 0.68 m/s 0.62 m/s ICA 0.67 m/s 0.64 m/s ECA 0.75 m/s 0.58 m/s ICA/CCA 1.0 1.0 VERT.ART Antegrade Antegrade There is mild bilateral carotid artery atherosclerotic disease. Impression: There is no grayscale or Doppler evidence of significant vascular stenosis. Dictated by: Dictated on workstation # [id number]
[2020-09-13 13:41] VITALS: BP 145/97
== END 2020-09-13 13:34 | disposition home or self-care (01) ==
LOC: ER 09:17
DX: S80.212A Abrasion, left knee, initial encounter (principal); F03.90 Unspecified dementia, unspecified severity, without behavioral disturbance, psychotic disturbance, mood disturbance, and anxiety; R29.6 Repeated falls; R35.0 Frequency of micturition; R42 Dizziness and giddiness; I10 Essential (primary) hypertension; E11.9 Type 2 diabetes mellitus without complications; Z80.9 Family history of malignant neoplasm, unspecified; Z79.4 Long term (current) use of insulin; Z79.82 Long term (current) use of aspirin; Z79.52 Long term (current) use of systemic steroids; W19.XXXA Unspecified fall, initial encounter
CPT/HCPCS: 36415; 70450; 72125; 80053; 81000; 83735; 84484; 85025; 93005; 93880

== ENCOUNTER 2021-02-04 01:11 | Inpatient (IN) | payer MEDICARE, OTHER ==
[~2021-02-04] VITALS: Ht 180 cm; Wt 69.0 kg
[~2021-02-04 01:11] MED LIST changes: +ASPI-1238 PO; +CARB15DR58 OS; +CHOL20003 PO; +DONE5TAB30 PO; +HYPR10GE4 OS; -PRED5DRO17 OP; +PRED5DRO17 OS; +RISP0.5T65 PO; +TOLT4CAP26 PO
[2021-02-04] MEDS ORDERED: NS IV 500 ML 500 ML IV ONE (01:30)
[2021-02-04 01:48] LABS: BILIRUBIN,URINE NEGATIVE (NEGATIVE); CLARITY,URINE CLEAR; COLOR,URINE YELLOW; GLUCOSE, URINE (UA) 3+ (NEGATIVE); KETONES,URINE NEGATIVE (NEGATIVE); LEUKOCYTE ESTERASE ,URINE NEGATIVE (NEGATIVE); NITRITE,URINE NEGATIVE (NEGATIVE); PH,URINE 6.5 (5-9); PROTEIN,URINE TRACE (NEGATIVE)
[2021-02-04 01:49] LABS: BASOPHILS % (AUTO) 0 % (0-10); EOSINOPHILS # (AUTO) 0.1 10^3/uL (0.0-0.3); EOSINOPHILS % (AUTO) 1 % (0-10); HEMATOCRIT 35 % (40-54); HEMOGLOBIN 11.5 g/dL (13.3-17.7); LYMPHOCYTES # (AUTO) 0.8 10^3/uL (1.0-4.0); LYMPHOCYTES % (AUTO) 6 % (12-44); MEAN CORPUSCULAR HEMOGLOBIN 28 pg (25-34); MEAN CORPUSCULAR HGB CONC 33 g/dL (32-36); MEAN CORPUSCULAR VOLUME 86 fL (80-99); MONOCYTES # (AUTO) 1.4 10^3/uL (0.0-1.0); MONOCYTES % (AUTO) 11 % (0-12); NEUTROPHILS # (AUTO) 10.2 10^3/uL (1.8-7.8); NEUTROPHILS % (AUTO) 81 % (42-75); PLATELET COUNT 193 10^3/uL (130-400); WHITE BLOOD COUNT 12.5 10^3/uL (4.3-11.0)
[2021-02-04 01:58] LABS: ALBUMIN 3.6 GM/DL (3.2-4.5); INR 1.1 (0.8-1.4); PROTHROMBIN TIME PATIENT 14.3 SEC (12.2-14.7)
[2021-02-04 01:59] LABS: POTASSIUM 5.2 MMOL/L (3.6-5.0)
[2021-02-04 02:00] LABS: CALCIUM 9.8 MG/DL (8.5-10.1)
[2021-02-04 02:01] LABS: BACTERIA,URINE TRACE /HPF; RBC,URINE 25-50 /HPF; TOTAL PROTEIN 6.8 GM/DL (6.4-8.2); WBC,URINE 0-2 /HPF
[2021-02-04 02:03] LABS: BILIRUBIN,TOTAL 0.5 MG/DL (0.1-1.0)
[2021-02-04 02:05] LABS: CREATININE SERUM 2.08 MG/DL (0.60-1.30)
[2021-02-04 02:08] LABS: BAND NEUTROPHILS 4 %; LYMPHOCYTES % (MANUAL) 3 %; MONOCYTES % (MANUAL) 10 %; NEUTROPHILS % (MANUAL) 83 %
[2021-02-04 02:09] LABS: RBC MORPH NORMAL
--- NOTE | 2021-02-04 03:12 | ED General ---
General Chief Complaint: General Problems/Pain Stated Complaint: FALLS / WEAKNESS Source of Information: Patient, EMS, Family Exam Limitations: Physical Impairments History of Present Illness Date Seen by Provider: Feb 04, 2021 Time Seen by Provider: 01:00 Initial Comments Here by EMS with report of fall at home. Apparently he tried to get up and fell and got his left foot caught under the dresser. He has advancing dementia and states that she is having increasing challenges taking care of him at home. Mildly febrile on arrival. Unsure if he hit his head. Patient answer simple questions and follow simple commands. Otherwise very poor historian and limited history from patient. Timing/Duration: 1/2 Hour Severity: Moderate Allergies and Home Medications Allergies Coded Allergies: No Known Drug Allergies (Unverified , 02/10/19) Patient Home Medication List Home Medication List Reviewed: Yes Acetaminophen (Tylenol) 325 Mg Tablet, 325 MG PO BID PRN for PAIN-MILD, (Reported) Entered as Reported by: ENZO WILKERSON on 02/11/19 0925 Aspirin (Aspirin EC) 81 Mg Tablet.dr, 81 MG PO DAILY, (Reported) Entered as Reported by: ENZO WILKERSON on 09/18/20 1319 Carboxymethylcellulose Sodium (Thera Tears) 15 Ml Drops, 1 DROP OS BID, (Reported) Entered as Reported by: ENZO WILKERSON on 09/18/20 1319 Cholecalciferol (Vitamin D3) (Vitamin D3) 50 Mcg Capsule, 50 MCG PO HS, (Reported) Entered as Reported by: ENZO WILKERSON on 09/18/20 1319 Cyanocobalamin (Cyanocobalamin Injection) 1,000 Mcg/Ml Inj, 1,000 MCG IM MONTHLY, (Reported) Entered as Reported by: ENZO WILKERSON on 09/18/20 1319 Donepezil HCl (Donepezil HCl) 5 Mg Tablet, 5 MG PO HS, (Reported) Entered as Reported by: ENZO WILKERSON on 09/18/20 1319 Fish Oil/Borage/Flax/Om3,6,9#1 ([place] 3-6-9 1,200 mg Softgel) 1,200 Mg Capsule, 1,200 MG PO BID, (Reported) Entered as Reported by: JACQUELINE SANTIAGO on 02/10/19 1740 Hypromellose (Systane Gel) 10 Gm Gel..gram., 1 APPLIC OS QID, (Reported) Entered as Reported by: ENZO WILKERSON on 09/18/20 1319 Isosorbide Mononitrate (Isosorbide Mononitrate ER) 30 Mg Tab.er.24h, 30 MG PO DAILY, (Reported) Entered as Reported by: ENZO WILKERSON on 02/11/19 09 Metformin HCl (Metformin HCl) 500 Mg Tablet, 500 MG PO HS, (Reported) Entered as Reported by: JACQUELINE SANTIAGO on 02/10/191739 Naproxen Sodium (Aleve) 220 Mg Tablet, 220 MG PO BID PRN for PAIN-MILD, (Reported) Entered as Reported by: ENZO WILKERSON on 02/11/19 09 Pravastatin Sodium (Pravastatin Sodium) 10 Mg Tablet, 10 MG PO DAILY, (Reported) Entered as Reported by: JACQUELINE SANTIAGO on 02/10/191739 Prednisolone Acetate (Prednisolone Acetate) 5 Ml Drops.susp, 1 DROP OS DAILY, (Reported) Entered as Reported by: ENZO WILKERSON on 02/11/19911 Risperidone (Risperidone) 0.5 Mg Tablet, 0.5 MG PO HS Prescribed by: FARSHAD STEWART on 09/20/20 1143 Sitagliptin Phosphate (Januvia) 100 Mg Tablet, 100 MG PO DAILY, (Reported) Entered as Reported by: JACQUELINE SANTIAGO on 02/10/191739 Tolterodine Tartrate (Tolterodine Tartrate ER) 4 Mg Cap.er.24h, 4 MG PO HS, (Reported) Entered as Reported by: ENZO WILKERSON on 09/18/20 1319 Vit C/E/Zn/Coppr/Lutein/Zeaxan (Ocuvite Lutein & Zeaxanthin Cp) 1 Each Capsule, 1 EACH PO HS, (Reported) Entered as Reported by: JACQUELINE SANTIAGO on 02/10/191739 Review of Systems Review of Systems Constitutional: see HPI, fever, weakness Respiratory: No short of breath Cardiovascular: No chest pain Musculoskeletal: No back pain; joint pain (Left foot); No neck pain Skin: no symptoms reported Psychiatric/Neurological: See HPI Review of systems limited due to underlying advanced dementia Past Cqeprpa-Xdaywl-Crldhd Hx Patient Social History Tobacco Use?: No Substance use?: No Alcohol Use?: No Seasonal Allergies Seasonal Allergies: No Past Medical History Surgeries: Yes Eye Surgery Respiratory: No Cardiac: Yes (CHF) Hypertension Neurological: Yes Dementia Genitourinary: No Gastrointestinal: No Musculoskeletal: No Endocrine: Yes Diabetes, Insulin dep HEENT: Yes (cornea transplant x2) Cataract Cancer: No Psychosocial: No Integumentary: No Blood Disorders: No Family Medical History Reviewed Nursing Family Hx "GIRL" CANCER G8 SISTER No Pertinent Family Hx non contributory Physical Exam-Suspected Sepsis Physical Exam Vital Signs Capillary Refill : Height, Weight, BMI Height: '" Weight: 183lbs. 4.0oz. [id number]; 23.43 BMI Method: General Appearance: No Apparent Distress, Chronically ill HEENT: PERRL/EOMI, Other (Mucous membranes dry) Neck: Non Tender, Supple Respiratory: Lungs Clear, Normal Breath Sounds Cardiovascular: No Murmur, Tachycardia Gastrointestinal: Non Tender, Soft Back: Normal Inspection, No CVA Tenderness, No Vertebral Tenderness Extremity: No Calf Tenderness, No Pedal Edema, Pelvis Stable, Other (Mild swelling lateral aspect left foot with mild bruising. Nontender over extremities otherwise and pelvis stable without pain.) Neurologic/Psychiatric: Alert, Other (Oriented to self. Follows simple commands and answer simple questions although slowed) Skin: warm/dry, ecchymosis (Left foot) Focused Exam Lactate Level 02/04/21 01:15: Lactic Acid Level 2.92*H 02/04/21 03:15: Lactic Acid Level 1.63 Lactic Acid Level Laboratory Tests Test 02/04/21 01:15 02/04/21 03:15 Lactic Acid Level 2.92 MMOL/L (0.50-2.00) *H 1.63 MMOL/L (0.50-2.00) Progress/Results/Core Measures Suspected Sepsis SIRS Temperature: Pulse: Respiratory Rate: Laboratory Tests 02/04/21 01:15: White Blood Count 12.5H Blood Pressure / Mean: 02/04/21 01:15: Lactic Acid Level 2.92*H 02/04/21 03:15: Lactic Acid Level 1.63 Laboratory Tests 02/04/21 01:15: Creatinine 2.08H, INR Comment 1.1, Platelet Count 193, Total Bilirubin 0.5 Results/Orders Lab Results Laboratory Tests Test 02/04/21 01:15 02/04/21 03:15 Range/Units White Blood Count 12.5 H 4.3-11.0 10^3/uL Red Blood Count 4.09 L 4.30-5.52 10^6/uL Hemoglobin 11.5 L 13.3-17.7 g/dL Hematocrit 35 L 40-54 % Mean Corpuscular Volume 86 80-99 fL Mean Corpuscular Hemoglobin 28 25-34 pg Mean Corpuscular Hemoglobin Concent 33 32-36 g/dL Red Cell Distribution Width 15.9 H 10.0-14.5 % Platelet Count 193 130-400 10^3/uL Mean Platelet Volume 11.0 9.0-12.2 fL Immature Granulocyte % (Auto) 0 % Neutrophils (%) (Auto) 81 H 42-75 % Lymphocytes (%) (Auto) 6 L 12-44 % Monocytes (%) (Auto) 11 0-12 % Eosinophils (%) (Auto) 1 0-10 % Basophils (%) (Auto) 0 0-10 % Neutrophils # (Auto) 10.2 H 1.8-7.8 10^3/uL Lymphocytes # (Auto) 0.8 L 1.0-4.0 10^3/uL Monocytes # (Auto) 1.4 H 0.0-1.0 10^3/uL Eosinophils # (Auto) 0.1 0.0-0.3 10^3/uL Basophils # (Auto) 0.0 0.0-0.1 10^3/uL Immature Granulocyte # (Auto) 0.0 0.0-0.1 10^3/uL Neutrophils % (Manual) 83 % Lymphocytes % (Manual) 3 % Monocytes % (Manual) 10 % Band Neutrophils 4 % Blood Morphology Comment NORMAL Prothrombin Time 14.3 12.2-14.7 SEC INR Comment 1.1 0.8-1.4 Activated Partial Thromboplast Time 31 24-35 SEC Urine Color YELLOW Urine Clarity CLEAR Urine pH 6.5 5-9 Urine Specific [place] 1.020 1.016-1.022 Urine Protein TRACE H NEGATIVE Urine Glucose (UA) 3+ H NEGATIVE Urine Ketones NEGATIVE NEGATIVE Urine Nitrite NEGATIVE NEGATIVE Urine Bilirubin NEGATIVE NEGATIVE Urine Urobilinogen 0.2 < = 1.0 MG/DL Urine Leukocyte Esterase NEGATIVE NEGATIVE Urine RBC (Auto) 2+ H NEGATIVE Urine RBC 25-50 H /HPF Urine WBC 0-2 /HPF Urine Squamous Epithelial Cells 2-5 /HPF Urine Crystals NONE /LPF Urine Bacteria TRACE /HPF Urine Casts NONE /LPF Urine Mucus SMALL H /LPF Urine Culture Indicated CULTURE PENDING Sodium Level 139 135-145 MMOL/L Potassium Level 5.2 H 3.6-5.0 MMOL/L Chloride Level 102 98-107 MMOL/L Carbon Dioxide Level 24 21-32 MMOL/L Anion Gap 13 5-14 MMOL/L Blood Urea Nitrogen 41 H 7-18 MG/DL Creatinine 2.08 H 0.60-1.30 MG/DL Estimat Glomerular Filtration Rate 31 BUN/Creatinine Ratio 20 Glucose Level 308 H 70-105 MG/DL Lactic Acid Level 2.92 *H 1.63 0.50-2.00 MMOL/L Calcium Level 9.8 8.5-10.1 MG/DL Corrected Calcium 10.1 8.5-10.1 MG/DL Total Bilirubin 0.5 0.1-1.0 MG/DL Aspartate Amino Transf (AST/SGOT) 74 H 5-34 U/L Alanine Aminotransferase (ALT/SGPT) 119 H 0-55 U/L Alkaline Phosphatase 317 H 40-136 U/L Total Protein 6.8 6.4-8.2 GM/DL Albumin 3.6 3.2-4.5 GM/DL My Orders Orders - MIC DANIEL MD Cbc With Automated Diff (02/04/21:19) Comprehensive Metabolic Panel (02/04/21:19) Blood Culture (02/04/21:19) Sputum Culture (02/04/21:19) Urinalysis (02/04/21:19) Urine Culture (02/04/21:19) Protime With Inr (02/04/21:19) Partial Thromboplastin Time (02/04/21:19) Chest 1 View, Ap/Pa Only (02/04/21:19) Ed Iv/Invasive Line Start (02/04/21:19) Vital Signs Adult Sepsis Patie Q15M (02/04/21:19) O2 (02/04/21:19) Remove Rings In Anticipation O (02/04/21:19) Lactic Acid Analyzer (02/04/21:19) Ed Iv/Invasive Line Start (9/6/21 01:19) Ns Iv 500 Ml (Sodium Chloride 0.9%) (02/04/21 01:30) Ct Head Wo (02/04/21 01:19) Manual Differential (02/04/21 01:15) Foot, Left, 3 Views (02/04/21 02:19) Cefepime Injection (Maxipime Injection) (02/04/21 03:45) Medications Given in ED Current Medications Medications Dose Ordered Sig/Oneil Route Start Time Stop Time Status Last Admin Dose Admin Cefepime HCl 1000 mg/Sterile Water 10 ml @ 200 mls/hr ONCE ONCE IV 02/04/21 03:45 02/04/21 03:48 DC 02/04/21 03:53 200 MLS/HR Sodium Chloride 500 ml @ 0 mls/hr Q0M ONCE IV 02/04/21 01:30 02/04/21 01:31 DC 02/04/21 02:18 1,000 MLS/HR Vital Signs/I&O Capillary Refill : Progress Note : Progress Note Seen and evaluated. Sepsis protocol initiated due to fever 99.9 on arrival. Slightly tachycardic in the 90s. CT head ordered. Chest x-ray ordered. Also will get x-ray of the left foot. Monitor patient. 0319: CT head does not show any acute findings. Chest x-ray does not show any acute findings. Left foot shows no acute fracture. Patient does have elevated lactic acid. He is getting normal saline 500 mL bolus. No source of infection currently. Fever may be from dehydration. Given the low-grade fever elevated white count with elevated lactic acid, we will go ahead and initiate cefepime 1 g IV and patient will be admitted to the hospital. This was discussed with patient's family who agree. Diagnostic Imaging Diagonstic Imaging: Xray Plain Films/CT/US/NM/MRI: chest Comments No acute findings Reviewed: Reviewed by Me Diagonstic Imaging: CT Plain Films/CT/US/NM/MRI: head Comments 0225: No acute findings in the head/brain per statrad reading. Reviewed: Reviewed Night [facility] Departure Communication (Admissions) Time/Spoke to Admitting Phy: 03:31 Impression Primary Impression: Fever of unknown origin Additional Impressions: Uncontrolled diabetes mellitus with hyperglycemia Qualified Codes: E11.65 - Type 2 diabetes mellitus with hyperglycemia Dehydration Advanced dementia Disposition: 09 ADMITTED INPATIENT Condition: Stable Admissions Decision to Admit Reason: Admit from ER (General) Decision to Admit/Date: Feb 04, 2021 Time/Decision to Admit Time: 03:23 Departure-Patient Inst. Referrals: JENNIFER NIX DO (PCP/Family) Primary Care Physician MIC DANIEL MD Feb 04, 2021 03:12
[2021-02-04] MEDS ORDERED: CEFEPIME INJECTION 1,000 MG in WATER (STERILE) FOR INJECTION 10 ML IV ONE (03:45)
[2021-02-04 05:25] VITALS: BP 116/57
[2021-02-04] MEDS ORDERED: ONDANSETRON 4 MG/2 ML (SDV) Z0FRAN IV PRN (05:45)
[2021-02-04] MEDS: LACTATED RINGERS 1,000 ML IV SCH ×2 (05:59→16:26)
[2021-02-04] MEDS: inSUlin ASPART (NovoLOG) 1 UNIT/0.01 ML (CHARGE PER UNIT) SC SCH ×4 (05:59→20:18)
--- NOTE | 2021-02-04 06:14 | Diagnostic Imaging Report ---
INDICATION: foot pain. TECHNIQUE: 3 views of the left foot CORRELATION STUDY: None FINDINGS: The osseous structures of the foot are intact. Joint spaces are maintained. Alignment anatomic. Mild hypertrophic changes sesamoid bone. Slight lucency 3rd proximal phalanx likely summation shadow. Mildly prominent plantar calcaneal spur. Soft tissues appearing unremarkable. IMPRESSION: 1. Negative for acute findings of the foot. Dictated by: Dictated on workstation # [id number]
--- NOTE | 2021-02-04 06:56 | Diagnostic Imaging Report ---
PROCEDURE: CT head without contrast. TECHNIQUE: Multiple contiguous axial images were obtained through the brain without the use of intravenous contrast. Auto Exposure Controls were utilized during the CT exam to meet ALARA standards for radiation dose reduction. INDICATION: 85-year-old male, falls, weakness. CORRELATION: 09/13/2020 FINDINGS: There are diffuse atrophic changes with prominence of the ventricles and sulci. There are scattered areas of decreased attenuation, nonspecific but likely changes of chronic small vessel ischemic disease. There is otherwise normal sharpe-white differentiation. No abnormal areas of attenuation to suggest edema from ischemia. There is no midline shift or mass effect. No evidence for acute intracranial hemorrhage or abnormal extra-axial fluid collection. Bony calvarium is intact. Paranasal sinuses are clear. Mastoid air cells also appear clear. IMPRESSION: 1. No CT evidence for acute intracranial abnormality. 2. Age-related atrophic changes with changes of small vessel ischemic disease. Initial report was provided by Lorena. Dictated by: Dictated on workstation # [id number]
--- NOTE | 2021-02-04 07:44 | Diagnostic Imaging Report ---
INDICATION: Sepsis, weakness, fall. TECHNIQUE: Single view chest 2:07 AM. CORRELATION STUDY: 02/10/2019 FINDINGS: The heart size, mediastinal configuration and pulmonary vascularity are within normal limits. Question minimal atelectasis or early infiltrate right lung base. Old left rib fracture deformities. IMPRESSION: 1. Faint opacity right lung base may reflect mild atelectasis versus early infiltrate. Follow-up imaging if clinically warranted. Dictated by: Dictated on workstation # [id number]
[2021-02-04 08:00] VITALS: BP 105/67
--- NOTE | 2021-02-04 08:19 | History & Physical-Hospitalist ---
History of Present Illness HPI/Chief Complaint ChestChief complaint: Fever with altered mental status History of present illness: This is an 85-year-old white male patient of Dr. So who previously was in a longterm that has been cared for in the home by his for the past 2 months who presented to the ER with altered mental status or weakness. Patient was found to be febrile but Covid negative. Dehydration was managed with gentle IV fluids and IV antibiotics started empirically which appears to be a pneumonia with infiltrate on chest x-ray. He is confused and appears to be very debilitated. Home medication will be restarted and PT and OT will be ordered. Nurse did say that he ripped out his IV and was very confused earlier today. Noted white count is now normal but procalcitonin is 0.55 with creatinine improved from 2-1.78 so we will monitor closely and maintain antibiotic coverage. Chest x-ray shows infiltrate right lower lobe confirmed. Source: patient, family Exam Limitations: other (Dementia) Date Seen 02/04/21 Time Seen by a Provider: 12:00 Attending Physician Corrina Richardson DO PCP Fareed So DO Referring Physician Date of Admission Feb 04, 2021 at 04:24 Home Medications & Allergies Home Medications Reviewed patient Home Medication Reconciliation performed by pharmacy medication reconciliations biomedical repair technician and/or nursing. Patients Allergies have been reviewed. Allergies Allergies Coded Allergies No Known Drug Allergies (Unverified02/10/19) Past [place]-Bbrisb-Lvurhn Hx Patient Social History Marrital Status: Employed/Student: retired Tobacco Use?: No Smoking Status: Unknown if Ever Smoked Use of E-Cig and/or Vaping dev: No Substance use?: No Alcohol Use?: No Pt feels they are or have been: No Immunizations Up To Date Date of Influenza Vaccine: Apr 19, 2020 Tetanus Booster (TDap): Unknown Hepatitis A: No Hepatitis B: No Seasonal Allergies Seasonal Allergies: No Current Status Advance Directives: No Communicates: Verbally Primary Language: Lithuanian Preferred Spoken Language: Lithuanian Sensory deficits: Hearing impairment Past Medical History Surgeries: Eye Surgery Hypertension Dementia Diabetes, Insulin dep Cataract Blood Disorders: No HTN, HLD, NIDDMII Family Medical History Reviewed Nursing Family Hx "GIRL" CANCER G8 SISTER No Pertinent Family Hx non contributory Review of Systems ROS-Unable to Obtain: Due to dementia Constitutional: see HPI, fever, malaise, weakness Respiratory: dyspnea on exertion Physical Exam Physical Exam Vital Signs Vital Signs - First Documented 02/04/21 01:15 Temp 36.1 Pulse 101 Resp 17 B/P (MAP) 128/65 (86) Pulse Ox 94 O2 Delivery Room Air Capillary Refill : Less Than 3 Seconds Height, Weight, BMI Height: '" Weight: 183lbs. 4.0oz. 83.401974iq; 21.29 BMI Method: General Appearance: No Apparent Distress, Chronically ill, Thin HEENT: PERRL/EOMI, TMs Normal, Normal ENT Inspection, Pharynx Normal, Moist Mucous Membranes Respiratory: Chest Non Tender, Lungs Clear, No Accessory Muscle Use, No Respiratory Distress, Decreased Breath Sounds Cardiovascular: Regular Rate, Rhythm Neurologic/Psychiatric: Alert, Oriented x3, No Motor/Sensory Deficits, Normal Mood/Affect Results Results/Procedures Labs Laboratory Tests 02/04/21 01:15 02/04/21 13:03 Patient resulted labs reviewed. Assessment/Plan Admission Diagnosis Assessment: Fever Right lower lobe pneumonia Dehydration Acute kidney injury Dementia Chronic debility Hypertension Diabetes Previous longterm patient Plan: Cefepime Supportive care IV fluids PT and OT Home meds Admission Status: Inpatient Order (span 2 midnights) Reason for Inpatient Admission: Pneumonia Diagnosis/Problems Diagnosis/Problems (1) Pneumonia of right lower lobe due to infectious organism (2) Fever (3) Diabetes (4) Advanced age (5) Acute kidney injury (6) Advanced dementia Status: Acute (7) Delirium Status: Resolved Resolution Date/Time: 02/14/19 @ 15:23 (8) Essential (primary) hypertension Status: Chronic (9) Insulin dependent diabetes mellitus Status: Chronic (10) Dehydration Status: Acute CORRINA RICHARDSON DO Feb 04, 2021 08:19
[2021-02-04 11:52] VITALS: BP 125/72
[2021-02-04] MEDS ORDERED: diphenhydrAMINE 25 MG TAB (BENADRYL) PO PRN (12:15)
[2021-02-04] MEDS ORDERED: MELATONIN 3 MG TABLET PO PRN (12:15)
[2021-02-04] MEDS ORDERED: CALCIUM CARBONATE 500 MG (TUMS) TAB.CHEW PO PRN (12:15)
[2021-02-04] MEDS ORDERED: DOCUSATE SODIUM 100 MG (COLACE) CAP PO PRN (12:15)
[2021-02-04] MEDS ORDERED: ACETAMINOPHEN 500 MG TAB (TYLENOL) PO PRN (12:15)
[2021-02-04] MEDS ORDERED: ALPRAZolam 0.25 MG (XANAX) TAB PO PRN (12:15)
[2021-02-04] MEDS ORDERED: LOPERAMIDE 2 MG (IMODIUM) TABLET PO PRN (12:15)
[2021-02-04] MEDS ORDERED: HYDROcodone/APAP 5 MG/325 MG (LORTAB) TAB PO PRN (12:15)
[2021-02-04] MEDS ORDERED: ONDANSETRON 4 MG/2 ML (SDV) Z0FRAN IVP PRN (12:15)
[2021-02-04] MEDS ORDERED: ENOXAPARIN 30 MG/0.3 ML (LOVENOX) SYR SC SCH (13:00)
--- NOTE | 2021-02-04 13:03 | Physical Therapy Evaluation ---
PT Evaluation-General Medical Diagnosis Admission Date Feb 04, 2021 at 04:24 Medical Diagnosis: fever, fall Onset Date: Feb 03, 2021 Therapy Diagnosis Therapy Diagnosis: impaired mobility, strength, endurance Height/Weight Weight (Pounds): 183 Weight (Ounces): 4.0 Precautions Precautions/Isolations: Fall Prevention, Standard Precautions Referral Physician: Corrina Richardson DO Reason for Referral: Evaluation/Treatment Medical History Pertinent Medical History: DM, Dementia, Heart Failure, HTN Additional Medical History Past Medical History Surgeries: Eye Surgery Hypertension Dementia Diabetes, Insulin dep Cataract Reviewed History: Yes Social History Home: Multilevel Current Living Status: Spouse Entry Into Home: Stairs With Railing PT Steps Into Home: 6 Prior Prior Level of Function SCALE: Activities may be completed with or without assistive devices. 2-Udzjhfahbb-mwbgwxm completes the activity by him/herself with no assistance from a helper. 5-Set-up or Clean-up Assistance-helper sets up or cleans up; patient completes activity. [place] assists only prior to or following the activity. 4-Supervision or Touching Assistance-helper provides verbal cues and/or touching/steadying and/or contact guard assistance as patient completes activity. Assistance may be provided throughout the activity or intermittently. 3-Partial/Moderate Assistance-helper does LESS THAN HALF the effort. [place] lifts, holds or supports trunk or limbs, but provides less than half the effort. 2-Substantial/Maximal Assistance-helper does MORE THAN HALF the effort. [place] lifts or holds trunk or limbs and provides more than half the effort. 0-Zrlzejnas-aaiqhc does ALL the effort. Patient does none of the effort to complete the activity. Or, the assistance of 2 or more helpers is required for the patient to complete the activity. If activity was not attempted, code reason: 7-Patient Refused. 9-Not Applicable-not attempted and the patient did not perform the activity before the current illness, exacerbation or injury. 10-Not Attempted due to Environmental Limitations-(lack of equipment, weather restraints, etc.). 88-Not Attempted due to Medical Conditions or Safety Concerns. Bed Mobility: 6 Transfers (B,C,W/C): 6 Gait: 6 Stairs: 4 Indoor Mobility (Ambulation): Independent Stairs: Needed Some Help states he has increasing difficulty with functional mobility PT Evaluation-Current Subjective Patient in bed pre tx, agrees to PT, has unrated pain in his eyes per patient Pt/Family Goals to be independent at home Objective Patient Orientation: Person, Confused, Situation Attachments: IV ROM/Strength ROM Lower Extremities WNL Strength Lower Extremities LLE (hip flexion 3/5, knee flexion 4/5, knee extension 4/5, dorsiflexion 4/5), RLE (hip flexion 3/5, knee flexion 4/5, knee extension 4/5, dorsiflexion 4/5) Sensory Hearing: Functional Sensation Right Lower Extremit: Impaired Sensation Left Lower Extremity: Impaired Sensation Lower Extremities Patient seems to have decreased light touch sensation in his feet. Transfers Roll Left to Right (QC): 6 Lying to Sitting/Side of Bed(Q: 3 Sit to Stand (QC): 4 Chair/Raz-la-Vkdtg Xfer(QC): 4 Min assist for supine to sit but CGA for sit to stand and transfers, cues for hand placement Gait Does the Patient Walk?: Yes Mode of Locomotion: Walk Anticipated Mode of Locomotion: Walk Walk 10 feet (QC): 4 Walk 50 ft with 2 Turns(QC): 4 Distance: 50' Gait Assistive Device: FWW Comments/Gait Description CGA, cues for direction and safety, patient states he was tired after ambulating 50' Balance Sitting Static: Normal Sitting Dynamic: Normal Standing Static: Fair Standing Dynamic: Fair Treatment BLE seated exercises x20 (AP, LAQ) Assessment/Needs Patient in recliner post tx with nurse call, phone, tray, chair alarm on. Patient has impaired mobility, strength, endurance. He needs min assist to sit to the edge of the bed but CGA to stand and ambulate. Rehab Potential: Fair PT Director [employer] Goals Director [employer] Goals PT Prison Goals Time Frame: Feb 11, 2021 Roll Left & Right (QC): 6 Sit to Lying (QC): 6 Lying-Sitting on Side/Bed(QC): 6 Sit to Stand (QC): 4 (SBA) Chair/Law-hl-Khlgz Xfer(QC): 4 (SBA) Walk 10 feet (QC): 4 (SBA) Walk 50ft with 2 Turns (QC): 4 (SBA) Walk 150 ft (QC): 4 (SBA) PT Plan Problem List Problem List: Activity Tolerance, Functional Strength, Safety, Balance, Gait, Transfer, Bed Mobility, ROM Treatment/Plan Treatment Plan: Continue Plan of Care Treatment Plan: Bed Mobility, Education, Functional Activity Mikhail, Functional Strength, Gait, Safety, Therapeutic Exercise, Transfers Treatment Duration: Feb 11, 2021 Frequency: 6 times per week Estimated Hrs Per Day: .25 hour per day Patient and/or Family Agrees t: Yes Safety Risks/Education Patient Education: Gait Training, Transfer Techniques, Correct Positioning, Safety Issues Teaching Recipient: Patient Teaching Methods: Demonstration, Discussion Response to Teaching: Reinforcement Needed Discharge Recommendations Plan Patient will perform bed mobility and transfer training, balance and endurance training, functional strengthening, stair training, gait training, and education, to improve functional mobility and independence at home. Therapy Discharge Recommendati: Scheduled Assistance, Home & Family, Post Acute PT Time/GCodes Time In: 1240 Time Out: 1253 Total Billed Treatment Time: 13 Total Billed Treatment 1 visit CHRISTOPHER DAMIAN PT Feb 04, 2021 13:03
[2021-02-04 13:10] LABS: BASOPHILS % (AUTO) 0 % (0-10); EOSINOPHILS # (AUTO) 0.1 10^3/uL (0.0-0.3); EOSINOPHILS % (AUTO) 1 % (0-10); HEMATOCRIT 36 % (40-54); HEMOGLOBIN 11.7 g/dL (13.3-17.7); LYMPHOCYTES # (AUTO) 1.2 10^3/uL (1.0-4.0); LYMPHOCYTES % (AUTO) 13 % (12-44); MEAN CORPUSCULAR HEMOGLOBIN 28 pg (25-34); MEAN CORPUSCULAR HGB CONC 32 g/dL (32-36); MEAN CORPUSCULAR VOLUME 87 fL (80-99); MEAN PLATELET VOLUME 10.8 fL (9.0-12.2); MONOCYTES # (AUTO) 1.1 10^3/uL (0.0-1.0); MONOCYTES % (AUTO) 11 % (0-12); NEUTROPHILS # (AUTO) 7.3 10^3/uL (1.8-7.8); NEUTROPHILS % (AUTO) 75 % (42-75); PLATELET COUNT 195 10^3/uL (130-400); WHITE BLOOD COUNT 9.8 10^3/uL (4.3-11.0)
[2021-02-04 13:24] LABS: ALBUMIN 3.7 GM/DL (3.2-4.5); POTASSIUM 4.6 MMOL/L (3.6-5.0)
[2021-02-04 13:25] LABS: CALCIUM 9.8 MG/DL (8.5-10.1)
[2021-02-04 13:26] LABS: TOTAL PROTEIN 6.9 GM/DL (6.4-8.2)
[2021-02-04 13:28] LABS: BILIRUBIN,TOTAL 0.5 MG/DL (0.1-1.0)
[2021-02-04 13:30] LABS: CREATININE SERUM 1.78 MG/DL (0.60-1.30)
--- NOTE | 2021-02-04 13:35 | Occupational Therapy Eval ---
OT Evaluation-General/PLF Medical Diagnosis Admission Date Feb 04, 2021 at 04:24 Medical Diagnosis: fever, fall Onset Date: Feb 03, 2021 Therapy Diagnosis Therapy Diagnosis: Weakness, Decreased ADL skills Height/Weight Weight (Pounds): 183 Weight (Ounces): 4.0 Precautions Precautions/Isolations: Fall Prevention, Standard Precautions Weight Bear Status Weight Bearing Restriction: Weight Bearing/Tolerated Referral Physician: Corrina Richardson DO Referral Reason: Activity Tolerance, Self Care, Evaluation/Treatment, Strengthening/ROM Medical History Pertinent Medical History: DM, Dementia, Heart Failure, HTN Additional Medical History Dementia Current History Pt. fell. Hit head but CT clear. Admitted with fever. Reviewed History: Yes Social History Home: Multilevel Current Living Status: Spouse Entry Into Home: Stairs With Railing Steps Into Home: 6 ADL-Prior Level of Function SCALE: Activities may be completed with or without assistive devices. 3-Zsmkrlosro-acutovc completes the activity by him/herself with no assistance from a helper. 5-Set-up or Clean-up Assistance-helper sets up or cleans up; patient completes activity. [place] assists only prior to or following the activity. 4-Supervision or Touching Assistance-helper provides verbal cues and/or touching/steadying and/or contact guard assistance as patient completes activity. Assistance may be provided throughout the activity or intermittently. 3-Partial/Moderate Assistance-helper does LESS THAN HALF the effort. [place] lifts, holds or supports trunk or limbs, but provides less than half the effort. 2-Substantial/Maximal Assistance-helper does MORE THAN HALF the effort. [place] lifts or holds trunk or limbs and provides more than half the effort. 6-Qyzfkhcrf-jllibi does ALL the effort. Patient does none of the effort to complete the activity. Or, the assistance of 2 or more helpers is required for the patient to complete the activity. If activity was not attempted, code reason: 7-Patient Refused. 9-Not Applicable-not attempted and the patient did not perform the activity before the current illness, exacerbation or injury. 10-Not Attempted due to Environmental Limitations-(lack of equipment, weather restraints, etc.). 88-Not Attempted due to Medical Conditions or Safety Concerns. ADL PLOF Comments Unknown. Spouse not present. Pt. states that he was independent with daily skills. However, pt has history of dementia. Self Care: Unknown Functional Cognition: Unknown DME/Equipment Comments Walker OT Current Status Subjective No pain reported. Appearance Pt. up in chair. Nursing reports that pt. has been confused. Pt. has chair alarm. Mental Status/Objective Patient Orientation: Unable to Assess Current Upper Extremity ROM Pt. is able to demonstrate approximately 80 degrees of active shoulder flexion. ADL-Treatment On/Off Footwear (QC): 4 Other Treatments Pt. states that he was getting "all cramped up" when asked why he is here. He states that he lives in [place] with his spouse, and that he is independent with daily tasks. Nursing reports that he has already attempted to get up on his own. Pt. indicates that he would like to go back to bed. Pt. transfers from chair with walker with min assist to bed. All needs met with bed alarm set. Education OT Patient Education: Correct positioning, Modified ADL techniques, Progress toward Goal/Update tx plan, Purpose of tx/functional activities, Reviewed precautions, Rehab process, Safety issues, Transfer techniques Teaching Recipient: Patient Teaching Methods: Demonstration, Discussion Response to Teaching: Verbalize Understanding, Reinforcement Needed OT Retirement Goals [employer] Pl[employer] Heater Goals Time Frame: Feb 18, 2021 Eating (QC): 5 Oral Hygiene (QC): 5 Toileting Hygiene (QC): 4 Upper Body Dressing (QC): 5 Lower Body Dressing (QC): 4 On/Off Footwear (QC): 4 Additional Goals: 1-Demonstrate ADL Tasks, 2-Verbalize Understanding, 3- ImproveStrength/Mikhail 1=Demonstrate adherence to instructed precautions during ADL tasks. 2=Patient will verbalize/demonstrate understanding of assistive devices/modifications for ADL. 3=Patient will improve strength/tolerance for activity to enable patient to perform ADL's. OT Education/Plan Problem List/Assessment Assessment: Decreased Activ Tolerance, Decreased Safety Aware, Dependent Transfers, Impaired Bed Mobility, Impaired Cognition, Impaired I ADL's, Impaired Self-Care Skills, Restricted Funct UE ROM Discharge Recommendations Plan/Recommendations: Continue POC Therapy Discharge Recommendati: Post Acute OT Treatment Plan/Plan of Care Treatment,Training & Education: Yes Patient would benefit from OT for education, treatment and training to promote independence in ADL's, mobility, safety and/or upper extremity function for ADL's. Plan of Care: ADL Retraining, Functional Mobility, UE Funct Exercise/Act Treatment Duration: Feb 18, 2021 Frequency: 5 times per week Estimated Hrs Per Day: .25 hour per day Agreement: Yes Rehab Potential: Fair Time/GCodes Start Time: 13:08 Stop Time: 13:20 Total Time Billed (hr/min): 12 Billed Treatment Time 1, AMBAR LUCAS OT Feb 04, 2021 13:35
--- NOTE | 2021-02-04 14:28 | Diagnostic Imaging Report ---
Indication: Follow-up pneumonia Examination chest 02/04/2021 COMPARISON: 02/04/2021 at 2:07 a.m. FINDINGS: There is a persistent faint opacity in the periphery of the right lung base likely due to atelectasis versus infiltrate. The remaining lungs stable in appearance. No effusions. No pneumothorax. Heart and pulmonary vasculature unremarkable. No acute osseous abnormality. IMPRESSION: 1. Persistent vague infiltrate in the periphery of the right lung base. Dictated by: Dictated on workstation # [id number]
[2021-02-04 15:59] VITALS: BP 138/68
[2021-02-04] MEDS: CEFEPIME 1,000 MG/SWFI 10 ML IV PUSH IV SCH ×2 (16:26)
[2021-02-04] MEDS: WATER (STERILE) FOR INJ 10 ML BTL INJ SCH (18:44)
[2021-02-04] MEDS: ZIPRASIDONE 20 MG INJ (GEODON) VIAL IM PRN (18:45)
[2021-02-04 19:25] VITALS: BP 151/74
[2021-02-04] MEDS: polyethylene glycoL POWDER 17 GM (MIRALAX) PACK PO SCH (20:18)
[2021-02-04] MEDS: SENNA W/DOCUSATE (SENOKOT S) TABLET PO SCH (20:18)
[2021-02-05] VITALS: BP 131/75
[2021-02-05] MEDS: ZIPRASIDONE 20 MG INJ (GEODON) VIAL IM PRN ×2 (03:00→13:19)
[2021-02-05] MEDS: WATER (STERILE) FOR INJ 10 ML BTL INJ SCH (03:01)
[2021-02-05 03:47] VITALS: BP 163/89
[2021-02-05] MEDS: CEFEPIME 1,000 MG/SWFI 10 ML IV PUSH IV SCH ×2 (04:35)
[2021-02-05] MEDS: inSUlin ASPART (NovoLOG) 1 UNIT/0.01 ML (CHARGE PER UNIT) SC SCH ×3 (05:40→14:54)
[2021-02-05 06:01] LABS: BASOPHILS % (AUTO) 0 % (0-10); EOSINOPHILS # (AUTO) 0.1 10^3/uL (0.0-0.3); EOSINOPHILS % (AUTO) 1 % (0-10); HEMATOCRIT 40 % (40-54); HEMOGLOBIN 12.8 g/dL (13.3-17.7); LYMPHOCYTES # (AUTO) 1.3 10^3/uL (1.0-4.0); LYMPHOCYTES % (AUTO) 13 % (12-44); MEAN CORPUSCULAR HEMOGLOBIN 28 pg (25-34); MEAN CORPUSCULAR HGB CONC 32 g/dL (32-36); MEAN CORPUSCULAR VOLUME 87 fL (80-99); MEAN PLATELET VOLUME 10.3 fL (9.0-12.2); MONOCYTES # (AUTO) 0.6 10^3/uL (0.0-1.0); MONOCYTES % (AUTO) 6 % (0-12); NEUTROPHILS % (AUTO) 80 % (42-75); PLATELET COUNT 210 10^3/uL (130-400); WHITE BLOOD COUNT 9.9 10^3/uL (4.3-11.0)
[2021-02-05 06:21] LABS: ALBUMIN 3.9 GM/DL (3.2-4.5); BILIRUBIN,TOTAL 0.5 MG/DL (0.1-1.0); CALCIUM 10.1 MG/DL (8.5-10.1); CREATININE SERUM 1.63 MG/DL (0.60-1.30); POTASSIUM 4.1 MMOL/L (3.6-5.0); TOTAL PROTEIN 7.3 GM/DL (6.4-8.2)
[2021-02-05 08:00] VITALS: BP 183/67
[2021-02-05] MEDS: polyethylene glycoL POWDER 17 GM (MIRALAX) PACK PO SCH (08:29)
[2021-02-05] MEDS: SENNA W/DOCUSATE (SENOKOT S) TABLET PO SCH (08:30)
--- NOTE | 2021-02-05 09:15 | Occupational Ther Daily Note ---
OT Current Status-Daily Note Subjective Pt laying in bed, eyes open and mouth open. Pt did not respond to therapist or communicate with OT during tx. Mental Status/Objective Patient Orientation: Unable to Assess Attachments: IV ADL-Treatment Therapy Code Descriptions/Definitions Functional [place] Measure: 0=Not Assessed/NA 4=Minimal Assistance 1=Total Assistance 5=Supervision or Setup 2=Maximal Assistance 6=Modified [place] 3=Moderate Assistance 7=Complete IndependenceSCALE: Activities may be completed with or without assistive devices. 7-Vfsrvqguhj-bsvndco completes the activity by him/herself with no assistance from a helper. 5-Set-up or Clean-up Assistance-helper sets up or cleans up; patient completes activity. [place] assists only prior to or following the activity. 4-Supervision or Touching Assistance-helper provides verbal cues and/or touching/steadying and/or contact guard assistance as patient completes activity. Assistance may be provided throughout the activity or intermittently. 3-Partial/Moderate Assistance-helper does LESS THAN HALF the effort. [place] lifts, holds or supports trunk or limbs, but provides less than half the effort. 2-Substantial/Maximal Assistance-helper does MORE THAN HALF the effort. [place] lifts or holds trunk or limbs and provides more than half the effort. 3-Uplycnisx-kvlvrz does ALL the effort. Patient does none of the effort to complete the activity. Or, the assistance of 2 or more helpers is required for the patient to complete the activity. If activity was not attempted, code reason: 7-Patient Refused. 9-Not Applicable-not attempted and the patient did not perform the activity before the current illness, exacerbation or injury. 10-Not Attempted due to Environmental Limitations-(lack of equipment, weather restraints, etc.). 88-Not Attempted due to Medical Conditions or Safety Concerns. Eating (QC): 7 (Pt would not eat/drink) Lower Body Dressing (QC): 1 (total assist to change brief at bed level.) Toileting Hygiene (QC): 1 (total assist to change soiled brief.) Other Treatment Pt laying in bed, brief soiled. Assist x2 to roll side to side in order to change brief, perform hygiene, and change paper kenna pad. Pt did not assist with rolling side to side, total assistance required. Total assistance with LE dressing and toilet hygiene. Pt would not eat/drink, when items brought to pt's lips, he would not close his mouth. Post tx, pt in bed, call light in reach and all needs met, bed alarm activated, Aide present. Education OT Patient Education: Correct positioning, Modified ADL techniques, Progress toward Goal/Update tx plan, Purpose of tx/functional activities, Rehab process Teaching Recipient: Patient Teaching Methods: Discussion Response to Teaching: Verbalize Understanding OT Water Pump Servicer Goals Detention Goals Time Frame: Feb 18, 2021 Eating (QC): 5 Oral Hygiene (QC): 5 Toileting Hygiene (QC): 4 Upper Body Dressing (QC): 5 Lower Body Dressing (QC): 4 On/Off Footwear (QC): 4 Additional Goals: 1-Demonstrate ADL Tasks, 2-Verbalize Understanding, 3- ImproveStrength/Mikhail 1=Demonstrate adherence to instructed precautions during ADL tasks. 2=Patient will verbalize/demonstrate understanding of assistive devices/modifications for ADL. 3=Patient will improve strength/tolerance for activity to enable patient to perform ADL's. OT Education/Plan Problem List/Assessment Assessment: Decreased Activ Tolerance, Decreased UE Strength, Dependent Transfers, Impaired Bed Mobility, Impaired Cognition, Impaired I ADL's, Impaired Self-Care Skills, Restricted Funct UE ROM Discharge Recommendations Plan/Recommendations: Continue POC Treatment Plan/Plan of Care Patient would benefit from OT for education, treatment and training to promote independence in ADL's, mobility, safety and/or upper extremity function for ADL's. Plan of Care: ADL Retraining, Functional Mobility, UE Funct Exercise/Act Treatment Duration: Feb 18, 2021 Frequency: 5 times per week Estimated Hrs Per Day: .25 hour per day Agreement: Yes Rehab Potential: Fair Time/GCodes Start Time: 08:15 Stop Time: 08:25 Total Time Billed (hr/min): 10 Billed Treatment Time 1, ADL MCKENZIE GALLARDO OT Feb 05, 2021 09:14
--- NOTE | 2021-02-05 09:36 | Physical Therapy Daily Note ---
PT Daily Note-Current Subjective Patient in bed pre tx, virtually unresponsive, he will open eyes to verbal and tactile stimuli but wont communicate other than a little mumbling or grunting, will not follow directions. Appearance Patient in bed post tx with nurse call, phone, tray, all needs met, bed alarm on. Mental Status Patient Orientation: Unresponsive, [place] Attachments: Oxygen Transfers SCALE: Activities may be completed with or without assistive devices. 9-Iaeaolxrof-qrqochx completes the activity by him/herself with no assistance from a helper. 5-Set-up or Clean-up Assistance-helper sets up or cleans up; patient completes activity. [place] assists only prior to or following the activity. 4-Supervision or Touching Assistance-helper provides verbal cues and/or touching/steadying and/or contact guard assistance as patient completes activity. Assistance may be provided throughout the activity or intermittently. 3-Partial/Moderate Assistance-helper does LESS THAN HALF the effort. [place] lifts, holds or supports trunk or limbs, but provides less than half the effort. 2-Substantial/Maximal Assistance-helper does MORE THAN HALF the effort. [place] lifts or holds trunk or limbs and provides more than half the effort. 7-Gkydnjcry-jaxhgh does ALL the effort. Patient does none of the effort to complete the activity. Or, the assistance of 2 or more helpers is required for the patient to complete the activity. If activity was not attempted, code reason: 7-Patient Refused. 9-Not Applicable-not attempted and the patient did not perform the activity before the current illness, exacerbation or injury. 10-Not Attempted due to Environmental Limitations-(lack of equipment, weather restraints, etc.). 88-Not Attempted due to Medical Conditions or Safety Concerns. Exercises PROM and stretching to BLE, patient encouraged to participate but he doesn't, he does groan a little with light stretching Treatments BLE stretching, ROM Assessment Current Status: Poor Progress severely declined from yesterday PT Care Home Goals Care Home Goals PT Care Home Goals Time Frame: Feb 11, 2021 Roll Left & Right (QC): 6 Sit to Lying (QC): 6 Lying-Sitting on Side/Bed(QC): 6 Sit to Stand (QC): 4 (SBA) Chair/Ogh-ys-[place]aamq Xfer(QC): 4 (SBA) Walk 10 feet (QC): 4 (SBA) Walk 50ft with 2 Turns (QC): 4 (SBA) Walk 150 ft (QC): 4 (SBA) PT Plan Problem List Problem List: Activity Tolerance, Functional Strength, Safety, Balance, Gait, Transfer, Bed Mobility, ROM Treatment/Plan Treatment Plan: Continue Plan of Care Treatment Plan: Bed Mobility, Education, Functional Activity Mikhail, Functional Strength, Gait, Safety, Therapeutic Exercise, Transfers Treatment Duration: Feb 11, 2021 Frequency: 6 times per week Estimated Hrs Per Day: .25 hour per day Patient and/or Family Agrees t: Yes Safety Risks/Education Patient Education: Correct Positioning, Safety Issues Teaching Recipient: Patient Teaching Methods: Demonstration, Discussion Response to Teaching: Reinforcement Needed Time/GCodes Time In: 913 Time Out: 924 Total Billed Treatment Time: 11 Total Billed Treatment 1 visit EX [place]' CHRISTOPHER TRISTAN PT Feb 05, 2021 09:36
[2021-02-05] MEDS: LACTATED RINGERS 1,000 ML IV SCH (10:20)
[2021-02-05] MEDS ORDERED: NITROGLYCERIN 2% OINT 1 GM UNIT DOSE PACKET TOP PRN (10:30)
[2021-02-05] MEDS ORDERED: hydrALAZINE (APESOLINE) 20 MG/ML VIAL IV PRN (10:30)
[2021-02-05 12:00] VITALS: BP 140/69
[2021-02-05] MEDS ORDERED: ACETAMINOPHEN 325 MG TABLET PO PRN (12:00)
[2021-02-05] MEDS ORDERED: ENOXAPARIN 40 MG/0.4 ML (LOVENOX) SYR SC SCH (13:00)
[2021-02-05] MEDS ORDERED: WATER (STERILE) FOR INJECTION 10 ML ONE (13:09)
[2021-02-05] MEDS ORDERED: CEFEPIME 1,000 MG/SWFI 10 ML IV PUSH IV SCH ×2 (14:00)
[2021-02-05] MEDS ORDERED: ACET-168 PO (15:27)
[2021-02-05] MEDS ORDERED: GABA-486 PO (15:30)
[2021-02-05 16:40] VITALS: BP 171/119
[2021-02-05] MEDS ORDERED: SALIVA STIMULANT MOUTH SPRAY (BIOTENE) 1.5 OZ MM PRN (18:00)
[2021-02-05] MEDS ORDERED: RT-ALBUTEROL/IPRATROPIUM 3 ML (DUONEB) VIAL INH PRN (18:00)
[2021-02-05] MEDS ORDERED: ARTIFICAL TEARS 0.4 ML UNIT DOSE (REFRESH PLUS) OU PRN (18:00)
[2021-02-05] MEDS ORDERED: ACETAMINOPHEN 650 MG SUPP (TYLENOL) PR PRN (18:00)
[2021-02-05] MEDS ORDERED: PROMETHAZINE INJ 25 MG/ML (PHENERGAN) AMP IVP PRN (18:00)
[2021-02-05] MEDS ORDERED: ONDANSETRON 4 MG/2 ML (SDV) Z0FRAN IVP PRN (18:00)
[2021-02-05] MEDS ORDERED: BISACODYL 10 MG SUPP (DULCOLAX) PR PRN (18:00)
[2021-02-05] MEDS ORDERED: morphine INJ 4 MG/ML 1 ML (VIAL/SYRINGE) IV PRN (18:00)
[2021-02-05] MEDS ORDERED: ATROPINE 1% OPHTHALMIC SOLN 2 ML SL PRN (18:00)
[2021-02-05] MEDS ORDERED: SCOPOLAMINE 1.5 MG (TRANSDERM-SCOP) PATCH TOP SCH (18:00)
[2021-02-05] MEDS: GLYCOPYRROLATE 0.2 MG/ML (ROBINUL) 2 ML VIAL IV PRN ×2 (18:41→22:44)
--- NOTE | 2021-02-05 18:55 | Progress Note - Hospitalist ---
CINDY TAO 02/05/[birth year]: Subjective HPI/CC On Admission Date Seen by Provider: Feb 05, 2021 Time Seen by Provider: 11:00 ChestChief complaint: Fever with altered mental status History of present illness: This is an 85-year-old white male patient of Dr. So who previously was in a jail that has been cared for in the home by his for the past 2 months who presented to the ER with altered m ental status or weakness. Patient was found to be febrile but Covid negative. Dehydration was managed with gentle IV fluids and IV antibiotics started empirically which appears to be a pneumonia with infiltrate on chest x-ray. He is confused and appears to be very debilitated. Home medication will be restarted and PT and OT will be ordered. Nurse did say that he ripped out his IV and was very confused earlier today. Noted white count is now normal but procalcitonin is 0.55 with creatinine improved from 2-1.78 so we will monitor closely and maintain antibiotic coverage. Chest x-ray shows infiltrate right lower lobe confirmed. Subjective/Events-last exam Today Mr. Sosa did not respond to my questions. He appeared very ill. Daughter was in the room and was agreeable to having a goals of care discussion with the family. Unable to perform ROS Focused Exam Lactate Level 02/04/21 01:15: Lactic Acid Level 2.92*H 02/04/21 03:15: Lactic Acid Level 1.63 Objective Exam Vital Signs Vital Signs Date Time Temp Pulse Resp B/P (MAP) Pulse Ox O2 Delivery O2 Flow Rate FiO2 02/05/21 16:40 36.6 130 20 171/119 (136) 91 Nasal Cannula 2.00 Capillary Refill : Less Than 3 Seconds General Appearance: No Apparent Distress, Chronically ill Respiratory: Chest Non Tender, No Respiratory Distress Cardiovascular: Regular Rate, Rhythm, No Edema, Normal Peripheral Pulses Results/Procedures Lab Laboratory Tests 02/05/21 05:40 Patient resulted labs reviewed. Assessment/Plan Assessment and Plan Assess & Plan/Chief Complaint Ronak Sosa was admitted 02/04 for management of non-COVID pneumonia. Today pt appeared more ill than the previous day. Prognosis for patient is poor. Pneumonia -02/04: Chest xay consistent with RLL pna Procalc 0.55 Plan: -Continue Cefepime Day 2 -Supportive care TYREL - resolved -02/05: Cr down to 1.6 Plan: -Continue IVF Delirium Debility -PT/OT -Palliative care consulted -Plan to transition patient to comfort care HTN -PRN hydralazine and Nitro Critical Care: Critically Ill Patient CORRINA SAWYER DO 02/06/21 0546: Supervisory-Addendum Brief Verification & Attestation Participated in pt care: history, MDM, physical Personally performed: exam, history, MDM, supervision of care Care discussed with: Medical Student Procedures: n/a Results interpretation: Verified all documentation Verification and Attestation of Medical Student E/M Service A medical student performed and documented this service in my presence. I reviewed and verified all information documented by the medical student and made modifications to such information, when appropriate. I personally performed the physical exam and medical decision making. Corrina Sawyer, Feb 06, 2021,05:46 CINDY TAO Feb 05, 2021 18:55 CORRINA SAWYER DO Feb 06, 2021 05:46
[2021-02-05] MEDS: LORazepam INJ 2 MG/ML (ATIVAN) VIAL IVP PRN (21:42)
[2021-02-06] MEDS: GLYCOPYRROLATE 0.2 MG/ML (ROBINUL) 2 ML VIAL IV PRN ×3 (03:02→13:55)
[2021-02-06] MEDS: LORazepam INJ 2 MG/ML (ATIVAN) VIAL IVP PRN ×3 (05:43→21:24)
--- NOTE | 2021-02-06 08:09 | Physical Therapy Progress Note ---
Therapy Progress Note Patient now on comfort care. Will DC from PT services at this time. CHRISTOPHER TRISTAN PT Feb 06, 2021 08:09
--- NOTE | 2021-02-06 14:06 | Progress Note - Hospitalist ---
CINDY TAO Elmo 02/06/21 1406: Subjective HPI/CC On Admission Date Seen by Provider: Feb 06, 2021 Time Seen by Provider: 10:00 ChestChief complaint: Fever with altered mental status History of present illness: This is an 85-year-old white male patient of Dr. So who previously was in a longterm that has been cared for in the home by his for the past 2 months who presented to the ER with altered mental status or weakness. Patient was found to be febrile but Covid negative. Dehydration was managed with gentle IV fluids and IV antibiotics started empirically which appears to be a pneumonia with infiltrate on chest x-ray. He is confused and appears to be very debilitated. Home medication will be restarted and PT and OT will be ordered. Nurse did say that he ripped out his IV and was very confused earlier today. Noted white count is now normal but procalcitonin is 0.55 with creatinine improved from 2-1.78 so we will monitor closely and maintain antibiotic coverage. Chest x-ray shows infiltrate right lower lobe confirmed. Subjective/Events-last exam Patient's family were present and were saying praying together. From a distance, patient continues to have a poor prognosis. Still incapacitated. Focused Exam Lactate Level 02/04/21 01:15: Lactic Acid Level 2.92*H 02/04/21 03:15: Lactic Acid Level 1.63 Objective Exam Vital Signs Vital Signs Date Time Temp Pulse Resp B/P (MAP) Pulse Ox O2 Delivery O2 Flow Rate FiO2 02/06/21 08:54 Nasal Cannula 0.50 02/05/21 16:40 36.6 130 20 171/119 (136) 91 Capillary Refill : Less Than 3 Seconds General Appearance: No Apparent Distress, Chronically ill Neurologic/Psychiatric: Other (Incapacitated ) Skin: Pallor Results/Procedures Lab Patient resulted labs reviewed. Assessment/Plan Assessment and Plan Assess & Plan/Chief Complaint Brief hospital course Ronak Sosa is a 85yo male with a past medical history of dementia and diabetes who was admitted 02/04 for management of non-COVID pneumonia. Patient had been cared by his for the past two months. On 02/04 patient was noted to have altered mental status and weakness. Admission findings were significant for fever, dehydration, and agitation. Creatinine was up to 2.08, consistent for TYREL. Chest Xray was significant for right lower lobe infiltrate and procalcitonin of 0.55. Patient was started on cefepime for pneumonia and IV fluids for dehydration/TYREL. On 02/05 patient became obtunded and unable to respond to questions. It was later decided by the family to cease all treatments and transition to comfort measures only. On 02/05 patient was transitioned to comfort care only. All treatments and antibiotics were ceased. Will continue to follow. Critical Care: Critically Ill Patient CORRINA SAWYER DO 02/07/21 0515: Subjective Subjective/Events-last exam Pt in terminal stage of life End of life comfort care ordered maintained home weatherizing worker will follow in case he has significant continuation of end of life in order to go back home or to longterm Objective Exam General Appearance: Other (Comatose) Assessment/Plan Assessment and Plan Assess & Plan/Chief Complaint End-of-life care Supervisory-Addendum Brief Verification & Attestation Participated in pt care: history, MDM, physical Personally performed: exam, history, MDM, supervision of care Care discussed with: Medical Student Procedures: n/a Results interpretation: Verified all documentation Verification and Attestation of Medical Student E/M Service A medical student performed and documented this service in my presence. I reviewed and verified all information documented by the medical student and made modifications to such information, when appropriate. I personally performed the physical exam and medical decision making. Corrina Sawyer, Feb 07, 2021,05:15 CINDY TAO Feb 06, 2021 14:06 CORRINA SAWYER DO Feb 07, 2021 05:15
[2021-02-07] MEDS: GLYCOPYRROLATE 0.2 MG/ML (ROBINUL) 2 ML VIAL IV PRN ×2 (02:53→22:56)
[2021-02-07] MEDS: LORazepam INJ 2 MG/ML (ATIVAN) VIAL IVP PRN ×2 (02:53→21:36)
--- NOTE | 2021-02-07 09:08 | Progress Note - Hospitalist ---
CINDY TAO 02/07/21 0908: Subjective HPI/CC On Admission ChestChi complaint: Fever with altered mental status History of present illness: This is an 85-year-old white male patient of Dr. So who previously was in a detention that has been cared for in the home by his for the past 2 months who presented to the ER with altered mental status or weakness. Patient was found to be febrile but Covid negative. Dehydration was managed with gentle IV fluids and IV antibiotics started empirically which appears to be a pneumonia with infiltrate on chest x-ray. He is confused and appears to be very debilitated. Home medication will be restarted and PT and OT will be ordered. Nurse did say that he ripped out his IV and was very confused earlier today. Noted white count is now normal but procalcitonin is 0.55 with creatinine improved from 2-1.78 so we will monitor closely and maintain antibiotic coverage. Chest x-ray shows infiltrate right lower lobe confirmed. Subjective/Events-last exam Checked on patient's family this morning. They conveyed wish to stay at the hospital for further comfort care. Pt has worsening respiratory distress. Objective Exam Vital Signs Vital Signs Date Time Temp Pulse Resp B/P (MAP) Pulse Ox O2 Delivery O2 Flow Rate FiO2 02/07/21 08:00 Room Air 0.50 02/05/21 16:40 36.6 130 20 171/119 (136) 91 Capillary Refill : Less Than 3 Seconds Respiratory: Respiratory Distress Results/Procedures Lab Patient resulted labs reviewed. Assessment/Plan Assessment and Plan Assess & Plan/Chief Complaint Brief hospital course Ronak Sosa is a 85yo male with a past medical history of dementia and diabetes who was admitted 02/04 for management of non-COVID pneumonia. Patient had been cared by his for the past two months. On 02/04 patient was noted to have altered mental status and weakness. Admission findings were significant for fever, dehydration, and agitation. Creatinine was up to 2.08, consistent for TYREL. Chest Xray was significant for right lower lobe infiltrate and procalcitonin of 0.55. Patient was started on cefepime for pneumonia and IV fluids for dehydration/TYREL. On 02/05 patient became obtunded and unable to respond to questions. It was later decided by the family to cease all treatments and transition to comfort measures only. On 02/05 patient was transitioned to comfort care only. All treatments and antibiotics were ceased. Will continue to follow. Critical Care: Critically Ill Patient CORRINA SAWYER DO 02/08/21 0540: Subjective HPI/CC On Admission Date Seen by Provider: Feb 07, 2021 Time Seen by Provider: 10:00 Subjective/Events-last exam End-of-life care Objective Exam General Appearance: Other (Comatose) Assessment/Plan Assessment and Plan Assess & Plan/Chief Complaint End-of-life care Supervisory-Addendum Brief Verification & Attestation Participated in pt care: history, MDM, physical Personally performed: exam, history, MDM, supervision of care Care discussed with: Medical Student Procedures: n/a Results interpretation: Verified all documentation Verification and Attestation of Medical Student E/M Service A medical student performed and documented this service in my presence. I reviewed and verified all information documented by the medical student and made modifications to such information, when appropriate. I personally performed the physical exam and medical decision making. Corrina Sawyer, Feb 08, 2021,05:40 CINDY ATO Feb 07, 2021 09:08 CORRINA SAWYER DO Feb 08, 2021 05:40
--- NOTE | 2021-02-08 05:42 | Discharge Summary ---
Discharge Summary Hospital Course Was the Problem List Reviewed?: Yes Problems/Dx: (1) Pneumonia of right lower lobe due to infectious organism (2) Fever (3) Diabetes (4) Advanced age (5) Acute kidney injury (6) Advanced dementia Status: Acute (7) Delirium Status: Resolved (8) Essential (primary) hypertension Status: Chronic (9) Insulin dependent diabetes mellitus Status: Chronic (10) Dehydration Status: Acute Hospital Course Date of Admission: Feb 04, 2021 at 04:24 Admission Diagnosis : Family Physician/Provider: Fareed So DO Date of Discharge: 02/08/21 Discharge Diagnosis: Pneumonia, end-of-life, delirium Hospital Course: Brief hospital course Ronak Sosa is a 85yo male with a past medical history of dementia and diabetes who was admitted 02/04 for management of non-COVID pneumonia. Patient had been cared by his for the past two months. On 02/04 patient was noted to have altered mental status and weakness. Admission findings were significant for fever, dehydration, and agitation. Creatinine was up to 2.08, consistent for TYREL. Chest Xray was significant for right lower lobe infiltrate and procalcitonin of 0.55. Patient was started on cefepime for pneumonia and IV fluids for dehydration/TYREL. On 02/05 patient became obtunded and unable to respond to questions. It was later decided by the family to cease all treatments and transition to comfort measures only. On 02/05 patient was transitioned to comfort care only. All treatments and antibiotics were ceased. Will continue to follow. Labs and Pending Lab Test: Microbiology 02/04/21 Blood Culture - Preliminary, Resulted No growth 02/04/21 Urine Culture - Final, Complete Gram Pos Mixed Bacterial Patsy Home Meds Active Reported Gabapentin 100 Mg Capsule 100 Mg PO HS Acetaminophen Extra Strength (Acetaminophen) 500 Mg Tablet 500 Mg PO BID Thera Tears (Carboxymethylcellulose Sodium) 15 Ml Drops 1 Drop OS BID Systane Gel (Hypromellose) 10 Gm Gel..gram. 1 Applic OS QID Cyanocobalamin Injection (Cyanocobalamin) 1,000 Mcg/Ml Inj 1,000 Mcg IM MONTHLY Tolterodine Tartrate ER (Tolterodine Tartrate) 4 Mg Cap.er.24h 4 Mg PO HS Donepezil HCl 5 Mg Tablet 5 Mg PO HS Aspirin EC (Aspirin) 81 Mg Tablet.dr 81 Mg PO DAILY Vitamin D3 (Cholecalciferol (Vitamin D3)) 50 Mcg Capsule 50 Mcg PO HS Aleve (Naproxen Sodium) 220 Mg Tablet 220 Mg PO BID PRN Prednisolone Acetate 5 Ml Drops.susp 1 Drop OS DAILY Isosorbide Mononitrate ER (Isosorbide Mononitrate) 30 Mg Tab.er.24h 30 Mg PO DAILY [place] 3-6-9 1,200 mg Softgel (Fish Oil/Borage/Flax/Om3,6,9#1) 1,200 Mg Capsule 1,200 Mg PO BID Ocuvite Lutein & Zeaxanthin Cp (Vit C/E/Zn/Coppr/Lutein/Zeaxan) 1 Each Capsule 1 Each PO HS Pravastatin Sodium 10 Mg Tablet 10 Mg PO DAILY Metformin HCl 500 Mg Tablet 500 Mg PO HS Januvia (Sitagliptin Phosphate) 100 Mg Tablet 100 Mg PO DAILY Assessment/Pt Instructions Discharge Planning: <30 minutes discharge planning Discharge Physical Examination Vital Signs Vital Signs Date Time Temp Pulse Resp B/P (MAP) Pulse Ox O2 Delivery O2 Flow Rate FiO2 02/07/21 20:00 Nasal Cannula 0.50 02/05/21 16:40 36.6 130 20 171/119 (231) 91 Allergies: Coded Allergies: No Known Drug Allergies (Unverified , 02/10/19) Discharge Summary Date of Admission Feb 04, 2021 at 04:24 Date of Discharge Feb 08, 2021 at 02:41 Admission Diagnosis Assessment: Fever Right lower lobe pneumonia Dehydration Acute kidney injury Dementia Chronic debility Hypertension Diabetes Previous senior living patient Plan: Cefepime Supportive care IV fluids PT and OT Home meds Comfort Measures/ End of Life Care: Pallative Care Discharge Diagnosis End-of-life care (1) Pneumonia of right lower lobe due to infectious organism (2) Fever (3) Diabetes (4) Advanced age (5) Acute kidney injury (6) Advanced dementia Status: Acute (7) Delirium Status: Resolved (8) Essential (primary) hypertension Status: Chronic (9) Insulin dependent diabetes mellitus Status: Chronic (10) Dehydration Status: Acute PIEDAD SAWYER DO Feb 08, 2021 05:41
[2021-02-08] MEDS ORDERED: SCOPOLAMINE PATCH REMOVAL TP SCH (17:59)
== END 2021-02-08 02:41 | disposition expired | DRG 194 ==
LOC: EDUNIT# 01:11 → ER 01:11 → 4TH 04:24
PROVIDERS: ADMIT Internal Medicine; ATTEND Internal Medicine
DX: J18.9 Pneumonia, unspecified organism (principal); N17.9 Acute kidney failure, unspecified; E11.65 Type 2 diabetes mellitus with hyperglycemia; E86.0 Dehydration; F03.90 Unspecified dementia, unspecified severity, without behavioral disturbance, psychotic disturbance, mood disturbance, and anxiety; I10 Essential (primary) hypertension; R53.81 Other malaise; R41.0 Disorientation, unspecified; Z51.5 Encounter for palliative care; Z66 Do not resuscitate; Z79.82 Long term (current) use of aspirin; Z79.899 Other long term (current) drug therapy; Z79.84 Long term (current) use of oral hypoglycemic drugs
CPT/HCPCS: 36415; 51701; 70450; 71045; 73630; 80053; 81000; 82140; 82947; 83605; 84145; 85007; 85025; 85027; 85610; 85730; 87040; 87088; 94760; 96374